=== PATIENT | male | born 1970 | race Caucasian/White ===

== ENCOUNTER → 2016-12-01 | Outpatient (CLI) | payer SELFPAY ==
[2016-12-01 09:00] LABS: Basophils % (A) 0 %; CH 30.5; CHCM 32.3; Eosinophils # (A) 0.1 k/uL (0-0.7); Eosinophils % (A) 1 %; HCT 55.2 % (39.0-53.0); HDW 2.28; HGB 17.6 gm/dL (13.0-17.5); Luc # (Auto) 0.23; Luc % (Auto) 3; Lymphocytes # (A) 1.6 k/uL (1.0-4.8); Lymphocytes % (A) 22 %; MCH 30.2 pg (25.0-35.0); MCHC 31.9 g/dL (31.0-37.0); MCV 94.7 fL (80.0-100.0); Mean Platelet Volume 6.4; Monocytes # (A) 0.5 k/uL (0-1.0); Monocytes % (A) 7 %; Neutrophils # (A) 4.7 k/uL (1.3-7.7); Neutrophils % (A) 67 %; RBC 5.83 m/uL (4.30-5.90); RDW 12.6 % (11.5-15.5); WBC 7.1 k/uL (3.8-10.6); WBC (Perox) 7.04
[2016-12-01 09:23] LABS: Bilirubin, Delta 0.3 mg/dL (0.0-0.2); Total Protein 7.5 g/dL (6.3-8.2)
[2016-12-01 10:32] LABS: Hemoglobin A1C 5.2 % (4.2-6.1)
== END | disposition home or self-care (01) ==
LOC: LABWHC1 08:23
PROVIDERS: ATTEND Psychiatry & Neurology Psychiatry
DX: F31.2 Bipolar disorder, current episode manic severe with psychotic features (principal)
CPT/HCPCS: 36415; 80061; 80076; 83036; 85025

== ENCOUNTER → 2017-11-02 | Outpatient (CLI) | payer SELFPAY ==
[2017-11-02 09:22] LABS: Basophils % (A) 1 %; Eosinophils # (A) 0.1 k/uL (0-0.7); Eosinophils % (A) 1 %; HCT 54.9 % (39.0-53.0); Lymphocytes # (A) 2.2 k/uL (1.0-4.8); Lymphocytes % (A) 28 %; MCH 29.2 pg (25.0-35.0); MCHC 32.8 g/dL (31.0-37.0); Mean Platelet Volume 6.5; Monocytes # (A) 0.5 k/uL (0-1.0); Monocytes % (A) 7 %; Neutrophils # (A) 4.6 k/uL (1.3-7.7); Neutrophils % (A) 60 %; Platelet Count 258 k/uL (150-450); RBC 6.17 m/uL (4.30-5.90); RDW 12.9 % (11.5-15.5); WBC 7.6 k/uL (3.8-10.6)
[2017-11-02 09:47] LABS: ALT 19 U/L (21-72); AST 13 U/L (17-59); Albumin 4.3 g/dL (3.5-5.0); Alkaline Phosphatase 61 U/L (38-126); Anion Gap 14 mmol/L; Blood Urea Nitrogen 23 mg/dL (9-20); Calcium 9.6 mg/dL (8.4-10.2); Carbon Dioxide 28 mmol/L (22-30); Chloride 102 mmol/L (98-107); Cholesterol 225 mg/dL (<200); Glucose 87 mg/dL (74-99); HDL Cholesterol 41 mg/dL (40-60); LDL Cholesterol,Calculated 156 mg/dL (0-99); Potassium 4.7 mmol/L (3.5-5.1); Sodium 144 mmol/L (137-145); Total Protein 7.5 g/dL (6.3-8.2); Triglycerides 141 mg/dL (<150)
[2017-11-02 09:52] LABS: Valproic Acid (Depakene) 33.5 ug/mL
[2017-11-02 21:58] LABS: Hemoglobin A1C 5.5 % (4.0-6.0)
== END | disposition home or self-care (01) ==
LOC: LABWHC1 08:06
PROVIDERS: ATTEND Psychiatry & Neurology Psychiatry
DX: F31.2 Bipolar disorder, current episode manic severe with psychotic features (principal)
CPT/HCPCS: 36415; 80053; 80061; 80164; 83036; 85025

== ENCOUNTER 2018-11-16 19:11 | Inpatient (IN) | payer BC, OTHER ==
--- NOTE | 2018-11-16 19:46 | ED ---
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 Patient states he missed his Abilify shot 2 weeks ago. Patient states he believes he has missed 3 total in the past 2 years. However states that he had a pickup order because he missed 5 in a row. Patient states he is taking his Depakote orally as directed. Patient denies any suicidal thoughts or worsening depression. Denies any thoughts of harming himself or anyone else. Patient denying any complaints at this time.Patient has no other complaints at this time including shortness of breath, chest pain, abdominal pain, nausea or vomiting, headache, or visual changes. - Related Data Home Medications Medication Instructions Recorded Confirmed ARIPiprazole IM SYRINGE [Abilify 400 mg IM Q28D 11/16/18 11/16/18 Maintena Syringe] Divalproex ER [Depakote ER] 1,500 mg PO HS 11/16/18 11/16/18 Allergies Allergy/AdvReac Type Severity Reaction Status Date / Time No Known Allergies Allergy Verified 11/16/18 19:36 Review of Systems ROS Statement: Those systems with pertinent positive or pertinent negative responses have been documented in the HPI. ROS Other: All systems not noted in ROS Statement are negative. Past Medical History Additional Past Medical History / Comment(s): Hernia History of Any Multi-Drug Resistant Organisms: None Reported Past Surgical History: Hernia Repair Past Anesthesia/Blood Transfusion Reactions: No Reported Reaction Past Psychological History: Bipolar Smoking Status: Never smoker Past Alcohol Use History: None Reported Past Drug Use History: None Reported - Past Family History Father Additional Family Medical History / Comment(s): Father is 80 years old with no major medical problems. Mother Additional Family Medical History / Comment(s): Mother is 81 years old with no major medical problems. Brother(s) Additional Family Medical History / Comment(s): He has 4 brothers and 2 sisters with no medical problems. Patient has 3 daughters and 1 son that are healthy. General Exam General appearance: alert, in no apparent distress Head exam: Present: atraumatic, normocephalic, normal inspection Eye exam: Present: normal appearance, PERRL, EOMI. Absent: scleral icterus, conjunctival injection, periorbital swelling ENT exam: Present: normal exam, mucous membranes moist Neck exam: Present: normal inspection, full ROM. Absent: tenderness, meningismus, lymphadenopathy Respiratory exam: Present: normal lung sounds bilaterally. Absent: respiratory distress, wheezes, rales, rhonchi, stridor Cardiovascular Exam: Present: regular rate, normal rhythm, normal heart sounds. Absent: systolic murmur, diastolic murmur, rubs, gallop, clicks Neurological exam: Present: alert, oriented X3, CN II-XII intact Psychiatric exam: Present: normal affect (pleasant cooperative), normal mood Course Vital Signs 11/16/18 19:14 Temperature 98.4 F Pulse Rate 91 Respiratory 18 Rate Blood Pressure 147/94 O2 Sat by Pulse 98 Oximetry Medical Decision Making - Medical Decision Making 48-year-old male presents by pickup order due to not having his Abilify injection. Patient was evaluated by EPS, will be admitted as he has not been following outpatient protocol. Disposition Clinical Impression: Bipolar disorder Disposition: ADMITTED IP TO THIS HOSP Condition: Fair Is patient prescribed a controlled substance at d/c from ED?: No Time of Disposition: 21:04
[2018-11-16] MEDS ORDERED: MAG HYDROX/AL HYDROX/SIMETH 30 ML CUP PO PRN (21:46)
[2018-11-16] MEDS ORDERED: LORazepam 1 MG TAB PO PRN (21:46)
[2018-11-16] MEDS ORDERED: ACETAMINOPHEN TAB 325 MG TAB PO PRN (21:46)
[2018-11-16] MEDS ORDERED: MAGNESIUM HYDROXIDE 2,400 MG/10 ML CUP PO PRN (21:46)
[2018-11-16] MEDS ORDERED: ZIPRASIDONE 20 MG VIAL IM PRN (21:46)
[2018-11-16] MEDS ORDERED: LORazepam 2 MG/ML INJ IM PRN (21:48)
[2018-11-16 22:36] VITALS: BMI 30.4
--- NOTE | 2018-11-17 07:19 | P.MDCNMH ---
History of Present Illness H&P Date: 11/17/18 Chief Complaint: noncompliance with medications 48-year-old male with no significant past medical history. Patient reports history of bipolar disorder patient was brought into the hospital upon court orderdue to missing his Abilify shots and follow-up appointments. Patient reports that he didn't have a rideto go to the appointments. He denies any suicidal ideation or homicidal ideation he denies any hallucinations. He denies any medical concerns at this point momo es any chest pain trouble breathing fevers chills coughing nausea vomiting abdominal pain or GI bleeding.patient denies any alcohol intake smoking or drug of abuse Review of Systems Pertinent positives as noted in HPI. All other systems were reviewed and are negative Past Medical History Additional Past Medical History / Comment(s): Hernia History of Any Multi-Drug Resistant Organisms: None Reported Past Surgical History: Hernia Repair Past Anesthesia/Blood Transfusion Reactions: No Reported Reaction Past Psychological History: Bipolar Smoking Status: Never smoker Past Alcohol Use History: None Reported Additional Past Alcohol Use History / Comment(s): Patient states he is a lifelong nonsmoker. He denies any medical marijuana, marijuana, street drug use or alcohol use. Past Drug Use History: None Reported - Past Family History Father Additional Family Medical History / Comment(s): Father is 80 years old with no major medical problems. Mother Additional Family Medical History / Comment(s): Mother is 81 years old with no major medical problems. Brother(s) Additional Family Medical History / Comment(s): He has 4 brothers and 2 sisters with no medical problems. Patient has 3 daughters and 1 son that are healthy. Medications and Allergies Home Medications Medication Instructions Recorded Confirmed Type ARIPiprazole IM SYRINGE [Abilify 400 mg IM Q28D 11/16/18 11/17/18 History Maintena Syringe] Divalproex ER [Depakote ER] 1,500 mg PO HS 11/16/18 11/17/18 History Allergies Allergy/AdvReac Type Severity Reaction Status Date / Time No Known Allergies Allergy Verified 11/17/18 00:31 Physical Exam Vitals: Vital Signs Temp Pulse Pulse Resp BP BP Pulse Ox 11/17/18 06:22 97.4 F L 77 18 119/81 11/16/18 22:26 98.6 F 86 18 143/89 11/16/18 21:32 98.5 F 82 18 104/86 95 11/16/18 19:14 98.4 F 91 18 147/94 98 Intake and Output 11/16/18 11/17/18 11/17/18 22:59 06:59 14:59 Other: Weight 90.718 kg Constitutional: No acute distress, conversant, pleasant Eyes: Anicteric sclerae, moist conjunctiva, no lid-lag Pupils equal round reactive to light ENMT: NC/AT Oropharynx clear, no erythema, exudates Neck: Supple, FROM, no masses, or JVD No carotid bruits No thyromegaly Lungs: Clear to auscultation Clear to percussion Normal respiratory effort, no accessory muscle use Cardiovascular: Heart regular in rate and rhythm, No murmurs, gallops, or rubs No peripheral edema Abdominal: Soft Nontender, no guarding, rebound or rigidity Abdomen moving with respiration Normoactive bowel sounds No hepatomegaly, No splenomegaly No palpable mass No abdominal wall hernia noted Skin: Normal temperature, tone, texture, turgor No induration No subcutaneous nodules No rash, lesions No ulcers Extremities: No digital cyanosis No clubbing Pedal pulses intact and symmetrical Radial pulses intact and symmetrical No calf tenderness Psychiatric: Alert and oriented to person, place and time Appropriate affect fair judgement Neuro Muscles Strength 5/5 in all 4 extremities Sensation to light touch grossly present throughout Cranial nerves II-XII grossly intact No focal sensory deficits Lymphatics: no palpable cervical or supraclavicular , or inguinal lymph nodes Cranial Nerve Examination - Cranial Nerves Cranial Nerve II- Optic: Intact Cranial Nerve III- Oculomotor: Intact Cranial Nerve IV- Trochlear: Intact Cranial Nerve V- Trigeminal: Intact Cranial Nerve - Abducens: Intact Cranial Nerve VII- Facial: Intact Cranial Nerve VIII- Auditory: Intact Cranial Nerve IX- Glossopharyngeal: Intact Cranial Nerve X- Vagus: Intact Cranial Nerve XI- Accessory: Intact Cranial Nerve XII- Hypoglossal: Intact Assessment and Plan Assessment: 48-year-old male with no significant past medical history. He reports history of bipolar disorder compliant with his medications. He was brought into the hospital due to missing Abilify shots and was brought in by court order for compliance. Patient denies any medical complaints or concerns at this point Plan: bipolar disorder Noncompliance with medications Management per psych Patient is ambulatory low risk for DVT Thank you for allowing us to participate in the care of this patient. We will follow peripherally. Do not hesitate to contact us with questions. Someone can be reached from the [facility] hospitalist group at all hours of the day at [phone].
[2018-11-17] MEDS ORDERED: ARIPiprazole IM SYRINGE 400 MG (NO CHARGE) IM ONE (09:09)
[2018-11-17] MEDS: DIVALPROEX ER 500 MG TAB.ER.24H PO SCH ×3 (10:30→21:18)
--- NOTE | 2018-11-17 10:57 | P.HP ---
Psychiatric H&P - . History & Physical: Allergies Allergy/AdvReac Type Severity Reaction Status Date / Time No Known Allergies Allergy Verified 11/17/18 00:31 Vital Signs Temp 97.4 F L 11/17/18 06:22 Pulse 77 11/17/18 06:22 Resp 18 11/17/18 06:22 BP 119/81 11/17/18 06:22 Pulse Ox 95 11/16/18 21:32 Intake & Output 11/16/18 11/17/18 11/17/18 18:59 06:59 18:59 Weight 90.718 kg 11/17/18 10:48 IDENTIFYING DATA: This patient is a 48-year-old male who was admitted to the mental health unit on a pickup order due to his noncompliance with outpatient follow-up and medication. HPI: The patient is known to this mental health services. He carries a diagn osis of bipolar 1 disorder. He has been established with [facility] however he has missed several outpatient appointments and missed his last injection of Abilify maintena. This violates his ongoing court order and he was brought in subsequently. The patient states that he has been doing quite well his mood is stable. He endorses no feelings of depression or anxiety. Sleep appetite and energy all reported to be normal. He indicates he sleeping 6-8 hours a night. He reports energy level is normal and does not feel excessive. He endorses no racing thoughts. He feels his thoughts are organized. He reports no hopelessness thinking no suicidal ideation intent or plan. He reports no homicidal ideation intent or plan. He endorses no auditory or visual hallucinations or any specific delusions. He reports no ownership of firearms. He states he is aware that he has violated the court order. 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 PAST PSYCHIATRIC HISTORY: The patient has had at least 4 inpatient psychiatric admissions this would be his third since 2013. He carries a diagnosis of bipolar 1 disorder and was previously hospitalized for being manic with psychosis. He is described Depakote ER 500 mg 3 times daily Abilify maintena 400 mg monthly. He states he's been on no other psychotropic medications in the past. He worked with Dr. Stroker and a therapist with [facility]. No reported history of suicide attempts. PMH: None reported other than suspected hyperlipidemia ALLERGIES: NO KNOWN DRUG ALLERGIES MEDICATIONS: Depakote ER and Abilify maintena CHEMICAL DEPENDENCY HISTORY: He reports no use of alcohol marijuana or illicit drugs. He's never been placed in residential treatment for chemical dependency reasons. FAMILY PSYCHIATRIC HISTORY: He reports that his brother was treated with lithium diagnosis unknown, no report of suicides in the family FAMILY CHEMICAL DEPENDENCY HISTORY: None reported SOCIAL HISTORY: The patient's is for the last 23 years him and his are currently he is residing with his parents. He has 4 children ages 14 and 17 19 and 21. They are all girls except for his youngest. 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 He has no driver trainer's license but gets rides to work from his brother. He graduated high school no history of service. Legal history he states he lost his license due to numerous traffic violations and reckless driving. Abuse history none reported. MENTAL STATUS EXAM: The patient is alert he is dressed in his own clothing eye contact is appropriate he's pleasant and cooperative. He is easily directed during the session. He indicates his mood is good he denies having any hopelessness thinking or suicidal ideation intent or plan. He reports no homicidal ideation intent or plan. Speech is fluent spontaneous nonpressured he demonstrates no tangential thinking loose associations or flight of ideas. He does not appear hypomanic or manic. He reports no auditory or visual hallucinations or any specific delusions and there is no observed evidence of psychosis. He demonstrated no verbal or physical aggressiveness. He demonstrates no involuntary repetitive movements. He is oriented to person place and date. He is able to name the days of the week backwards. Insight and judgment appear to be grossly intact and he spontaneously describes future oriented thinking. STRENGTHS/WEAKNESSES: Strengths: Housing and employment weaknesses: Nonadherence to court ordered treatment INTELLECTUAL FUNCTIONING: Average IMPRESSIONS: [] 1. Bipolar 1 disorder most recent manic with psychosis PLAN: The patient has been admitted to the mental health unit on an existing treatment order. We discussed the importance of him adhering to outpatient appointments and compliant with his medication. Clinically he is stable and there is no evidence of psychosis or ayo. He is able to attend to his activities of daily living. We will administer Abilify maintena 400 mg IM today. He will continue Depakote ER 500 mg 3 times daily. Depakote level pending. He will be expected to participate in groups. We will monitor him for safety. We will evaluate him during the course of today and tonight and I expect we will be able to discharge him tomorrow if he continues to appear clinically stable.
[2018-11-17 11:24] LABS: Basophils % (A) 1 %; Eosinophils % (A) 1 %; HCT 52.6 % (39.0-53.0); HGB 16.8 gm/dL (13.0-17.5); Lymphocytes # (A) 1.3 k/uL (1.0-4.8); Lymphocytes % (A) 23 %; MCH 29.4 pg (25.0-35.0); MCV 91.9 fL (80.0-100.0); Mean Platelet Volume 6.3; Monocytes # (A) 0.5 k/uL (0-1.0); Monocytes % (A) 8 %; Neutrophils # (A) 3.8 k/uL (1.3-7.7); Neutrophils % (A) 64 %; Platelet Count 227 k/uL (150-450); RBC 5.72 m/uL (4.30-5.90); RDW 13.6 % (11.5-15.5); WBC 5.9 k/uL (3.8-10.6)
[2018-11-17 11:47] LABS: ALT 82 U/L (21-72); AST 44 U/L (17-59); Albumin 4.3 g/dL (3.5-5.0); Alkaline Phosphatase 59 U/L (38-126); Anion Gap 8 mmol/L; Blood Urea Nitrogen 15 mg/dL (9-20); Calcium 9.8 mg/dL (8.4-10.2); Carbon Dioxide 28 mmol/L (22-30); Chloride 103 mmol/L (98-107); Cholesterol 206 mg/dL (<200); Glucose 71 mg/dL (74-99); HDL Cholesterol 44 mg/dL (40-60); LDL Cholesterol,Calculated 139 mg/dL (0-99); Potassium 4.7 mmol/L (3.5-5.1); Sodium 139 mmol/L (137-145); Total Protein 7.4 g/dL (6.3-8.2); Triglycerides 116 mg/dL (<150)
[2018-11-17 18:02] LABS: Hemoglobin A1C 5.6 % (4.0-6.0)
[2018-11-17] MEDS ORDERED: DIVALPROEX ER 500 MG TAB.ER.24H PO SCH (21:00)
[2018-11-18 06:57] VITALS: BP 113/61; PULSE 69; RESP 15; TEMP 97.6
[2018-11-18] MEDS: DIVALPROEX ER 500 MG TAB.ER.24H PO SCH (09:02)
--- NOTE | 2018-11-18 09:05 | P.DS ---
Providers Date of admission: 11/16/18 20:43 Expected date of discharge: 11/18/18 Attending physician: Vamsi Cortes Consults: 11/16/18 21:46 Consult Physician Routine Consulting Provider: Xuan Cordoba Consult Reason/Comments: H&P and medical Do you want consulting provider notified?: Yes Primary care physician: Stated None - Discharge Diagnosis(es) (1) Bipolar 1 disorder Current Visit: Yes Status: Acute Priority: High Hospital Course: Brief summary of admission note: This patient is a 48-year-old male who was admitted to the mental health unit on a pickup order due to noncompliance with an existing court order for psychiatric treatment. Upon admission it was reported that the patient had missed outpatient psychiatric follow-up appointments at [facility]. Additionally he had not received his last ordered injection of Abilify maintena that was due over 2 weeks ago. Subsequently a pickup order was issued and he was brought to the hospital for admission. Despite his noncompliance the patient stated he was doing quite well states that sleep was stable he is experiencing no increase in energy no racing thoughts. 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 He endorses no hallucinations or specific delusions. He states that he is aware that he missed the appointments and took responsibility for that. 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 For full details please refer to my psychiatric evaluation dated 11/17/2018. Summary of hospital course: The patient was admitted to the mental health unit on an existing court order. We resumed his Depakote ER and he prefers to take it as 500 mg 3 times daily. He was given the injection of Abilify maintena 400 mg yesterday. The patient has been attending all groups. He has been pleasant and cooperative. The last 2 nights he has slept throughout the night without difficulty. There have been no behavioral issues. Staff report that the patient has been appropriately contributing to groups and easily directable. He is demonstrated no evidence of acute psychosis or ayo. He has given us permission to speak with his parents and brother. We will obtain collateral information from them. His brother will likely participate in a support meeting today. We discussed the importance of maintaining compliance with his outpatient mental health care. He was seen by internal medicine for routine history and physical exam. Social work has met with him to complete a psychosocial assessment and for discharge planning purposes. Mental status exam: The patient is alert he is dressed in his own clothing hygiene grooming adequate. Speech is fluent spontaneous nonpressured. He demonstrates no circumstantial thinking tangential thinking loose associations or flight of ideas. He does not appear hypomanic or manic. He is endorsing no auditory or visual hallucinations or any specific delusions. He demonstrates no observed evidence of psychosis. He reports no depressed mood he endorses no significant anxiety or irritability. Affect is euthymic and congruent to reported mood. He does not appear irritable or euphoric. He demonstrates no verbal or physical aggressiveness he demonstrates no involuntary repetitive movements. Insight and judgment appear to be grossly intact. He spontaneously describes appropriate future oriented thinking. He remains oriented to person place and date. Impressions 1. Bipolar 1 disorder most recent manic with psychosis Plan: The patient will be discharged mental health unit he will return residing with his parents. There is no imminent safety risk and he does not appear to require continued involuntary psychiatric hospitalization. He is appropriate for transition back to outpatient care. Again we discussed the importance of maintaining compliance with appointments and medication. He will continue on Depakote ER 500 mg 3 times a day, Abilify maintena 400 mg every 28 days next dose is due 12/15/2018. He reports no use of alcohol or illicit drugs and knees instructed to continue abstaining from substances. He is instructed to return to the hospital with any acute safety concerns. Patient Condition at Discharge: Stable Plan - Discharge Summary Discharge Rx Participant: No New Discharge Prescriptions: New Divalproex ER [Depakote ER] 500 mg PO TID #45 tab.er.24h Continue ARIPiprazole IM SYRINGE [Abilify Maintena Syringe] 400 mg IM Q28D #1 syringe Discontinued Divalproex ER [Depakote ER] 1,500 mg PO HS Discharge Medication List ARIPiprazole IM SYRINGE [Abilify Maintena Syringe] 400 mg IM Q28D #1 syringe 11/18/18 [Rx] Divalproex ER [Depakote ER] 500 mg PO TID #45 tab.er.24h 11/18/18 [Rx] Follow up Appointment(s)/Referral(s): None,Stated [Primary Care Provider] - 1-2 days
== END 2018-11-18 13:34 | disposition home or self-care (01) | DRG 885 ==
LOC: EC 19:11 → 3MHU 20:43
PROVIDERS: ADMIT Psychiatry & Neurology Psychiatry; ATTEND Psychiatry & Neurology Psychiatry
DX: F31.2 Bipolar disorder, current episode manic severe with psychotic features (principal); Z79.899 Other long term (current) drug therapy; Z91.19 Patient's noncompliance with other medical treatment and regimen; Z91.14 Patient's other noncompliance with medication regimen
CPT/HCPCS: 80053; 80061; 80164; 83036; 84443; 85025; 99285

== ENCOUNTER 2020-11-20 16:46 | Emergency (ER) | payer OTHER ==
[2020-11-20] MEDS ORDERED: IBUPROFEN 800 MG TAB PO STA (17:25)
[2020-11-20 17:39] LABS: Basophils % (A) 0 %; Eosinophils # (A) 0.1 k/uL (0-0.7); Eosinophils % (A) 1 %; HCT 45.4 % (39.0-53.0); HGB 15.7 gm/dL (13.0-17.5); Lymphocytes # (A) 1.5 k/uL (1.0-4.8); Lymphocytes % (A) 12 %; MCH 30.1 pg (25.0-35.0); MCHC 34.5 g/dL (31.0-37.0); MCV 87.2 fL (80.0-100.0); Mean Platelet Volume 6.7; Monocytes # (A) 0.9 k/uL (0-1.0); Monocytes % (A) 7 %; Neutrophils # (A) 10.1 k/uL (1.3-7.7); Neutrophils % (A) 79 %; Platelet Count 299 k/uL (150-450); RBC 5.21 m/uL (4.30-5.90); RDW 12.3 % (11.5-15.5); WBC 12.8 k/uL (3.8-10.6)
[2020-11-20 17:53] LABS: Acetaminophen <10.0 ug/mL; African American GFR (CKD) >90 (>60 ml/min/1.73 sqM); Alcohol <10 mg/dL; Anion Gap 8 mmol/L; Blood Urea Nitrogen 9 mg/dL (9-20); Calcium 9.3 mg/dL (8.4-10.2); Carbon Dioxide 25 mmol/L (22-30); Chloride 97 mmol/L (98-107); Glucose 122 mg/dL (74-99); Non-African American GFR(CKD) >90 (>60 ml/min/1.73 sqM); Potassium 4.2 mmol/L (3.5-5.1); Salicylate <1.0 mg/dL; Sodium 130 mmol/L (137-145)
[2020-11-20] MEDS ORDERED: diphenhydrAMINE 50 MG/ML 1 ML VIAL IVP STA (17:56)
[2020-11-20] MEDS ORDERED: LORazepam 2 MG/ML INJ IV STA (17:56)
--- NOTE | 2020-11-20 18:37 | XR ---
EXAMINATION TYPE: XR chest 1V portable DATE OF EXAM: 11/20/2020 COMPARISON: NONE HISTORY: Cough TECHNIQUE: Single view FINDINGS: Heart and mediastinum are normal. Lungs are clear. Diaphragm is normal. Bony thorax appears normal. Pulmonary vascularity is normal. IMPRESSION: Normal chest. Normal heart.
--- NOTE | 2020-11-20 19:38 | ED ---
Psych HPI - General Chief Complaint: Psychiatric Symptoms Stated Complaint: Mental health Time Seen by Provider: 11/20/20 16:52 Source: patient Mode of arrival: ambulatory - Related Data Home Medications Medication Instructions Recorded Confirmed No Known Home Medications 11/20/20 11/20/20 Allergies Allergy/AdvReac Type Severity Reaction Status Date / Time No Known Allergies Allergy Verified 11/20/20 20:08 Review of Systems ROS Statement: Those systems with pertinent positive or pertinent negative responses have been documented in the HPI. ROS Other: All systems not noted in ROS Statement are negative. Past Medical History Additional Past Medical History / Comment(s): Hernia History of Any Multi-Drug Resistant Organisms: None Reported Past Surgical History: Hernia Repair Past Anesthesia/Blood Transfusion Reactions: No Reported Reaction Past Psychological History: Bipolar Smoking Status: Never smoker Past Alcohol Use History: None Reported Past Drug Use History: None Reported - Past Family History Father Additional Family Medical History / Comment(s): Father is 80 years old with no major medical problems. Mother Additional Family Medical History / Comment(s): Mother is 81 years old with no major medical problems. Brother(s) Additional Family Medical History / Comment(s): He has 4 brothers and 2 sisters with no medical problems. Patient has 3 daughters and 1 son that are healthy. General Exam Limitations: no limitations Course Vital Signs 11/20/20 11/20/20 11/20/20 17:03 20:02 20:12 Temperature 100.3 F H 98 F Pulse Rate 112 H 102 H Respiratory 18 20 Rate Blood Pressure 141/83 O2 Sat by Pulse 97 95 Oximetry Procedures - Restraint - Face to Face Restraint Occurrence 1 Patient's Immediate Situation: Endangers self safety, Endangers others' safety Patient's Immediate Situation - Comment: Face to face eval at 1715 Patient's Reaction to the Intervention: Calm, Cooperative Need to Continue or Terminate Restraint or Seclusion: Continue Medical Decision Making - Medical Decision Making Patient is medically clear for psychiatry. - Lab Data Result diagrams: 11/20/20 17:17 11/20/20 17:17 Lab Results 11/20/20 11/20/20 11/20/20 Range/Units 17:17 17:17 17:57 WBC 12.8 H (3.8-10.6) k/uL RBC 5.21 (4.30-5.90) m/uL Hgb 15.7 (13.0-17.5) gm/dL Hct 45.4 (39.0-53.0) % MCV 87.2 (80.0-100.0) fL MCH 30.1 (25.0-35.0) pg MCHC 34.5 (31.0-37.0) g/dL RDW 12.3 (11.5-15.5) % Plt Count 299 (150-450) k/uL MPV 6.7 Neutrophils % 79 % Lymphocytes % 12 % Monocytes % 7 % Eosinophils % 1 % Basophils % 0 % Neutrophils # 10.1 H (1.3-7.7) k/uL Lymphocytes # 1.5 (1.0-4.8) k/uL Monocytes # 0.9 (0-1.0) k/uL Eosinophils # 0.1 (0-0.7) k/uL Basophils # 0.0 (0-0.2) k/uL Sodium 130 L (137-145) mmol/L Potassium 4.2 (3.5-5.1) mmol/L Chloride 97 L (98-107) mmol/L Carbon Dioxide 25 (22-30) mmol/L Anion Gap 8 mmol/L BUN 9 (9-20) mg/dL Creatinine 0.93 (0.66-1.25) mg/dL Est GFR (CKD-EPI)AfAm >90 (>60 ml/min/1.73 sqM) Est GFR (CKD-EPI)NonAf >90 (>60 ml/min/1.73 sqM) Glucose 122 H (74-99) mg/dL Calcium 9.3 (8.4-10.2) mg/dL Salicylates <1.0 mg/dL Acetaminophen <10.0 ug/mL Serum Alcohol <10 mg/dL Coronavirus (PCR) Not Detected (Not Detectd) Disposition Clinical Impression: Depression Disposition: TRANSFER TO PSYCH HOSP/UNIT Is patient prescribed a controlled substance at d/c from ED?: No Referrals: None,Stated [Primary Care Provider] - 1-2 days
[2020-11-21 01:32] LABS: Appearance,Urine Clear (Clear); Bilirubin,Urine Negative (Negative); Blood,Urine Negative (Negative); Color,Urine Yellow; Glucose,Urine (UA) Negative (Negative); Ketones,Urine Negative (Negative); Leukocyte Esterase,Urine Negative (Negative); Nitrite,Urine Negative (Negative); Protein,Urine Trace (Negative); Specific Gravity,Urine 1.017 (1.001-1.035)
[2020-11-21] MEDS ORDERED: LORazepam 2 MG/ML INJ IV STA (01:43)
[2020-11-21 01:48] LABS: Amphetamine Screen,Urine Not Detected (NotDetected); Barbiturate Screen,Urine Not Detected (NotDetected); Benzodiazepines Screen,Urine Detected (NotDetected); Cocaine Screen,Urine Not Detected (NotDetected); Methadone Screen, Urine Not Detected (NotDetected); Opiate Screen,Urine Not Detected (NotDetected); Oxycodone Screen, Urine Not Detected (NotDetected); Phencyclidine Screen,Urine Not Detected (NotDetected); Tricyclic Antidepressant,Urine Not Detected (NotDetected); Urn Cannabinoid Scrn Not Detected (NotDetected)
[2020-11-21 02:14] VITALS: PULSE 117
[2020-11-21] MEDS: LORazepam 2 MG/ML INJ IV PRN ×2 (02:53→09:35)
--- NOTE | 2020-11-21 04:47 | ED ---
Medical Decision Making - Medical Decision Making 50 male DF for evaluation patient seen and evaluated here in the ER by myself myself needs restraints and continued restraints, patient will be transferred for inpatient psychiatric evaluation and treatment - Lab Data Result diagrams: 11/20/20 17:17 11/20/20 17:17 Lab Results 11/20/20 11/20/20 11/20/20 Range/Units 17:17 17:17 17:57 WBC 12.8 H (3.8-10.6) k/uL RBC 5.21 (4.30-5.90) m/uL Hgb 15.7 (13.0-17.5) gm/dL Hct 45.4 (39.0-53.0) % MCV 87.2 (80.0-100.0) fL MCH 30.1 (25.0-35.0) pg MCHC 34.5 (31.0-37.0) g/dL RDW 12.3 (11.5-15.5) % Plt Count 299 (150-450) k/uL MPV 6.7 Neutrophils % 79 % Lymphocytes % 12 % Monocytes % 7 % Eosinophils % 1 % Basophils % 0 % Neutrophils # 10.1 H (1.3-7.7) k/uL Lymphocytes # 1.5 (1.0-4.8) k/uL Monocytes # 0.9 (0-1.0) k/uL Eosinophils # 0.1 (0-0.7) k/uL Basophils # 0.0 (0-0.2) k/uL Sodium 130 L (137-145) mmol/L Potassium 4.2 (3.5-5.1) mmol/L Chloride 97 L (98-107) mmol/L Carbon Dioxide 25 (22-30) mmol/L Anion Gap 8 mmol/L BUN 9 (9-20) mg/dL Creatinine 0.93 (0.66-1.25) mg/dL Est GFR (CKD-EPI)AfAm >90 (>60 ml/min/1.73 sqM) Est GFR (CKD-EPI)NonAf >90 (>60 ml/min/1.73 sqM) Glucose 122 H (74-99) mg/dL Calcium 9.3 (8.4-10.2) mg/dL Urine Color Urine Appearance (Clear) Urine pH (5.0-8.0) Ur Specific [place] (1.001-1.035) Urine Protein (Negative) Urine Glucose (UA) (Negative) Urine Ketones (Negative) Urine Blood (Negative) Urine Nitrite (Negative) Urine Bilirubin (Negative) Urine Urobilinogen (<2.0) mg/dL Ur Leukocyte Esterase (Negative) Salicylates <1.0 mg/dL Urine Opiates Screen (NotDetected) Ur Oxycodone Screen (NotDetected) Urine Methadone Screen (NotDetected) Ur Propoxyphene Screen (NotDetected) Acetaminophen <10.0 ug/mL Ur Barbiturates Screen (NotDetected) U Tricyclic Antidepress (NotDetected) Ur Phencyclidine Scrn (NotDetected) Ur Amphetamines Screen (NotDetected) U Methamphetamines Scrn (NotDetected) U Benzodiazepines Scrn (NotDetected) Urine Cocaine Screen (NotDetected) U Marijuana (THC) Screen (NotDetected) Serum Alcohol <10 mg/dL Coronavirus (PCR) Not Detected (Not Detectd) 11/21/20 11/21/20 Range/Units 01:20 01:20 WBC (3.8-10.6) k/uL RBC (4.30-5.90) m/uL Hgb (13.0-17.5) gm/dL Hct (39.0-53.0) % MCV (80.0-100.0) fL MCH (25.0-35.0) pg MCHC (31.0-37.0) g/dL RDW (11.5-15.5) % Plt Count (150-450) k/uL MPV Neutrophils % % Lymphocytes % % Monocytes % % Eosinophils % % Basophils % % Neutrophils # (1.3-7.7) k/uL Lymphocytes # (1.0-4.8) k/uL Monocytes # (0-1.0) k/uL Eosinophils # (0-0.7) k/uL Basophils # (0-0.2) k/uL Sodium (137-145) mmol/L Potassium (3.5-5.1) mmol/L Chloride (98-107) mmol/L Carbon Dioxide (22-30) mmol/L Anion Gap mmol/L BUN (9-20) mg/dL Creatinine (0.66-1.25) mg/dL Est GFR (CKD-EPI)AfAm (>60 ml/min/1.73 sqM) Est GFR (CKD-EPI)NonAf (>60 ml/min/1.73 sqM) Glucose (74-99) mg/dL Calcium (8.4-10.2) mg/dL Urine Color Yellow Urine Appearance Clear (Clear) Urine pH 6.0 (5.0-8.0) Ur Specific [place] 1.017 (1.001-1.035) Urine Protein Trace H (Negative) Urine Glucose (UA) Negative (Negative) Urine Ketones Negative (Negative) Urine Blood Negative (Negative) Urine Nitrite Negative (Negative) Urine Bilirubin Negative (Negative) Urine Urobilinogen 4.0 (<2.0) mg/dL Ur Leukocyte Esterase Negative (Negative) Salicylates mg/dL Urine Opiates Screen Not Detected (NotDetected) Ur Oxycodone Screen Not Detected (NotDetected) Urine Methadone Screen Not Detected (NotDetected) Ur Propoxyphene Screen Not Detected (NotDetected) Acetaminophen ug/mL Ur Barbiturates Screen Not Detected (NotDetected) U Tricyclic Antidepress Not Detected (NotDetected) Ur Phencyclidine Scrn Not Detected (NotDetected) Ur Amphetamines Screen Not Detected (NotDetected) U Methamphetamines Scrn Not Detected (NotDetected) U Benzodiazepines Scrn Detected H (NotDetected) Urine Cocaine Screen Not Detected (NotDetected) U Marijuana (THC) Screen Not Detected (NotDetected) Serum Alcohol mg/dL Coronavirus (PCR) (Not Detectd) Disposition Clinical Impression: Depression, Psychosis, Acute psychosis, Personality disorder, Severe manic bipolar 1 disorder with psychotic behavior, Bipolar disorder, Bipolar 1 disorder Disposition: TRANSFER TO PSYCH HOSP/UNIT Condition: Fair Is patient prescribed a controlled substance at d/c from ED?: No Referrals: None,Stated [Primary Care Provider] - 1-2 days Procedures - Restraint - Face to Face Restraint Occurrence 1 Patient's Immediate Situation: Endangers self safety, Endangers others' safety, Endangers staff safety Patient's Reaction to the Intervention: Uncooperative, Angry, Hostile, Belligerent Patient's Medical & Behavioral Condition: Agitated Need to Continue or Terminate Restraint or Seclusion: Continue Face to Face Eval of Restraint Date: 11/21/20 Face to Face Eval of Restraint Time: 02:45 Restraint Occurrence 2 Patient's Immediate Situation: Endangers self safety, Endangers others' safety, Endangers staff safety Patient's Reaction to the Intervention: Hostile, Belligerent, Bizarre Patient's Medical & Behavioral Condition: Agitated Need to Continue or Terminate Restraint or Seclusion: Continue Face to Face Eval of Restraint Date: 11/21/20 Face to Face Eval of Restraint Time: 04:00
[2020-11-21 07:56] VITALS: BP 152/89; RESP 18; TEMP 97.8
== END 2020-11-21 11:10 ==
LOC: EC 16:46
DX: F31.2 Bipolar disorder, current episode manic severe with psychotic features (principal); F23 Brief psychotic disorder; F60.9 Personality disorder, unspecified
CPT/HCPCS: 36415; 80048; 85025; 81003; 80306; 80143; 80320; 87635; 80179; 71045; 99285; 96374; 96376 ×2; J2060 ×2; J1200

== ENCOUNTER 2022-05-16 12:49 | Inpatient (IN) | payer OTHER ==
--- NOTE | 2022-05-16 14:46 | ED ---
General Adult HPI - General Chief complaint: Psychiatric Symptoms Stated complaint: Petition Time Seen by Provider: 05/16/22 14:23 Source: police Mode of arrival: ambulatory Limitations: no limitations - History of Present Illness Initial comments: Dictation was produced using [employer] dictation software. please excuse any grammatical, word or spelling errors. Chief Complaint: 52-year-old presents emergency department for psychiatric evaluation History of Present Illness: 52-year-old male who is brought in by police. Patient had a petition filled by police for discerning behavior. Patient allegedly has been having psychotic symptoms for the last several days. Patient is a poor historian secondary to psychosis. He does not report hallucinations. Patient is showing signs of strange behavior and according to petition patient has been doing yard work at 3 AM in the morning. Patient denies this. Patient denies any suicidal or homicidal ideation. Denies any visual or auditory hallucinations. The ROS documented in this emergency department record has been reviewed and confirmed by me. Those systems with pertinent positive or negative responses have been documented in the HPI. All other systems are other negative and/or noncontributory. PHYSICAL EXAM: General Impression: Alert and oriented x3, not in acute distress HEENT: Normocephalic atraumatic, extra-ocular movements intact, pupils equal and reactive to light bilaterally, mucous membranes moist. Cardiovascular: Heart regular rate and rhythm Chest: Able to complete full sentences, no retractions, no tachypnea Musculoskeletal: Pulses present and equal in all extremities, no peripheral edema Motor: no focal deficits noted Neurological: CN II-XII grossly intact, no focal motor or sensory deficits noted Skin: Intact with no visualized rashes Psych: Tangential speech ED course: 52-year-old male presents emergency department for psychiatric evaluation. Patient is well-appearing. Signs upon arrival shows heart rate of 125, rest of vital signs within acceptable limits. Chart review was performed. Patient has been admitted to our inpatient psych facility in the past. Patient medically cleared. Patient evaluate by EPS and we'll admit patient to mental health unit. - Related Data Home Medications Medication Instructions Recorded Confirmed No Known Home Medications 11/20/20 05/16/22 Allergies Allergy/AdvReac Type Severity Reaction Status Date / Time No Known Allergies Allergy Verified 05/16/22 15:45 Review of Systems ROS Statement: Those systems with pertinent positive or pertinent negative responses have been documented in the HPI. ROS Other: All systems not noted in ROS Statement are negative. Past Medical History Additional Past Medical History / Comment(s): Hernia History of Any Multi-Drug Resistant Organisms: None Reported Past Surgical History: Hernia Repair Past Anesthesia/Blood Transfusion Reactions: No Reported Reaction Past Psychological History: Bipolar Smoking Status: Never smoker Past Alcohol Use History: None Reported Past Drug Use History: None Reported - Past Family History Father Additional Family Medical History / Comment(s): Father is 80 years old with no major medical problems. Mother Additional Family Medical History / Comment(s): Mother is 81 years old with no major medical problems. Brother(s) Additional Family Medical History / Comment(s): He has 4 brothers and 2 sisters with no medical problems. Patient has 3 daughters and 1 son that are healthy. General Exam Limitations: no limitations Course Vital Signs 05/16/22 14:18 Temperature 97 F L Pulse Rate 125 H Respiratory 20 Rate Blood Pressure 183/110 O2 Sat by Pulse 99 Oximetry Medical Decision Making - Lab Data Lab Results 05/16/22 Range/Units 15:10 Coronavirus (PCR) Not Detected (Not Detectd) Disposition Clinical Impression: Psychosis Disposition: ADMITTED IP TO THIS HOSP Condition: Fair Referrals: None,Stated [Primary Care Provider] - 1-2 days Decision Time: 16:39
[2022-05-16] MEDS ORDERED: LORazepam 1 MG TAB PO STA (16:22)
[2022-05-16] MEDS ORDERED: HALOPERIDOL LACTATE 5 MG/ML 1 ML VIAL IM STA (16:51)
[2022-05-16] MEDS ORDERED: LORazepam 1 MG/0.5 ML VIAL IM PRN (22:17)
[2022-05-16] MEDS ORDERED: haloperidoL 5 MG TAB PO PRN (22:18)
[2022-05-17] MEDS: NICOTINE 14MG/24HR PATCH TRANSDERM SCH (09:40)
[2022-05-17 11:37] LABS: Urine Alcohol Negative (Negative)
[2022-05-17 11:38] LABS: Urine Barbiturate Negative (Negative); Urine Cocaine Negative (Negative); Urine Methadone Negative (Negative); Urine Opiates Negative (Negative); Urine Phencyclidine Negative (Negative)
--- NOTE | 2022-05-17 18:37 | P.HP ---
Psychiatric H&P - . H&P Date: 05/17/22 History & Physical: IDENTIFYING DATA: Patient is a 52 year old male with history of bipolar I disorder who presents with ayo. HPI: Per EPS assessment, "patient brought in on a petition related to doing yard work at 3-4am, also confronting people in [place] telling them "the spirit is inside of them". He is religiously preoccupied, verbally and passoinately loud. pt used to be on court order for abilify main. but has been discontinued, no longer active with [facility]. Pt is getting medications Haloperiodol Dec. 100mg IM q 4weeks, Depakote 500mg tab by mouth twice a day, Benztropine 1mg tab by mouth twice daily. He is not taking any He is no longer on a court order that required his to take Abilify Maintena. Pt does not believe that the "God the father" does not want him to take medications. He is hyperverbal and hyperactive. Pt is not physically aggressive and is cooperative but again is very loud and insist he will not take any medication." On my assessment, he is guarded and irritable, looks at this grant writer with intimidating stare. He reports he is hear because an officer petitioned him, appear to have poor insight into his current mental health issues. He is irritable and uncooperative with assessment, stands up and leaves the room after about two minutes. Per petition completed by commissioned police officer, patient was "causing issues over the past two weeks", has been "confronting people in [place]", "said the spirit is inside him and telling him what to do with it". He has also been doing "yard work at 3-4 am" and confronting his neighbors. In the ER last night, he was agitated and received Haldol 5mg IM x 1 and Ativan 2 mg po x 1 for agitation. He was uncooperative with the admission process, was trying to fight the security in the ER, telling staff in the ER he is Christoph Waller, was agitated in the wheelchair resulting in a small cut to the nurse's arm while she was bringing him to the unit. Apparently he was refusing the cooperate with hospitalization and transport to the inpatient unit unless the nurse allowed him to sign in voluntary, however he stated he would not be compliant with medications. He received another Haldol 5mg IM x 1 and Ativan 2 mg IM x 1 for agitation at around 4:15 am this morning on unit due to agitation and threatening staff. Review of patient activity logs shows patient slept 3.5-4 hours overnight. He has been irritable, intrusive and at times agitated since arriving to the unit. He is uncooperative with my assessment and most of history below is obtained from records. Patient has a history of heavy alcohol use in the past, it is not known if he is drinking alcohol again. His insight and judgment are poor. Suicidal ideation, homicidal ideation, auditory or visual hallucinations cannot be fully evaluated at this time due to his lack of cooperation with assessment. He has not been compliant with medications or treatment. He was previously on court ordered treatment and on Abilify Maintena long-acting injectable in the past. Patient was seen by the medical doctor and a first certification was completed by him stating patient is "delusional", he thinks he's Christoph Sridhar" and patient lacks insight about his mental health condition. I attempted to re-evaluate patient for a second time today, since he walked out of the interview room after 2 minutes on my first attempt, however he continues to be noncompliant and aborted attempts to assess him after one minute, refuses to engage in assessment and states "no, we're done". He continues to be irritable with mood lability and psychomotor hyperactivity. PAST PSYCHIATRIC HISTORY: Past diagnosis: Bipolar I disorder Past psychiatric medications: Depakote, Abilify Maintena, Cogentin, Thorazine, Prolixin. History of court ordered treatment. Prrevious psychiatric hospitalizations: Multiple, three times prior at [facility] [place], [place] and [place]. Psychiatric outpatient follow-up: None History of suicide attempts in the past: Not known at this time due to lack of cooperation PMH: Additional Past Medical History / Comment(s): Hernia History of Any Multi-Drug Resistant Organisms: None Reported Past Surgical History: Hernia Repair Past Anesthesia/Blood Transfusion Reactions: No Reported Reaction Past Psychological History: Bipolar Smoking Status: Never smoker Past Alcohol Use History: None Reported Past Drug Use History: None Reported ALLERGIES: as per EMR CHEMICAL DEPENDENCY HISTORY: as per HPI FAMILY PSYCHIATRIC/SUBSTANCE USE HISTORY: Mother- mood disorder, Brother with bipolar disorder SOCIAL HISTORY: , has 4 children, lives in [place] alone, reports he is estranged from his . MENTAL STATUS EXAM: General Appearance: Patient appears to be stated age, is dressed in black casual attire, fair hygiene. Behavior: Patient is seated with intimidating stare, is guarded and terse, ab ruptly leaves the room after two minutes. Speech: Patient's speech is fluent and non-pressured. Mood/Affect: He is irritable, affect is constricted. Suicidality/Homicidality: Not able to fully assess due to lack of cooperation. Perceptions: Not able to fully assess due to lack of cooperation. Though content/process: Brief responses, linear, terse Memory and concentration: Not able to fully assess due to lack of cooperation. Judgment and insight: Poor STRENGTHS/WEAKNESSES: Strength is that patient has can make needs known. Weakness is that patient has poor judgment and history of noncompliance with treatment INTELLECT: Average IMPRESSIONS: Bipolar I disorder, current episode mixed, severe with psychotic features Alcohol use disorder, unspecified Noncompliance with treatment PLAN: -Patient arrived to the psychiatric unit on a petition and a formal voluntary application (signed by patient only) however it has been determined he is not appropriate for voluntary admission due to his lack of cooperation with the admission process. He requires inpatient psychiatric admission in the [facility] for stabilization of psychiatric symptoms and safety. An initial certification was completed by the medical doctor and a second certification was completed by this grant writer, along with petition will be filed for court. -Medications: Will start patient on Abilify 5 mg QHS for psychosis, mood stabilization, which he will likely refuse. He will require court ordered treatment and long-acting injectable due to long history of noncompliance. -Ativan and Haldol PRN for agitation/aggression -Patient was noncompliant with attempts to discuss medications and side effects with him. -Internal Medicine consult - medical evaluation and physical. -NRT - not needed, non-smoker -SW on board for discharge planning. Encourage patient to participate in groups to work on coping skills. Will await deferral and court date. Allergies Allergy/AdvReac Type Severity Reaction Status Date / Time No Known Allergies Allergy Verified 05/16/22 15:45 Vital Signs Temp 98.7 F 05/16/22 22:34 Pulse 103 H 05/16/22 22:34 Resp 18 05/16/22 22:34 BP 131/74 05/16/22 22:34 Pulse Ox 93 L 05/16/22 22:34 FiO2 Intake & Output 05/16/22 05/17/22 05/17/22 18:59 06:59 18:59 Weight 86.183 kg 90.889 kg Laboratory Last Values Urine Opiates Screen Negative (Negative) 05/16/22 15:57 Urine Methadone Screen Negative (Negative) 05/16/22 15:57 Ur Propoxyphene Screen Negative (Negative) 05/16/22 15:57 Urine Barbiturates Negative (Negative) 05/16/22 15:57 Ur Phencyclidine Scrn Negative (Negative) 05/16/22 15:57 Ur Amphetamine Screen Negative (Negative) 05/16/22 15:57 U Benzodiazepines Scrn Negative (Negative) 05/16/22 15:57 Urine Cocaine Screen Negative (Negative) 05/16/22 15:57 U Cannabinoids Screen Negative (Negative) 05/16/22 15:57 Urine Alcohol Negative (Negative) 05/16/22 15:57 Coronavirus (PCR) Not Detected (Not Detectd) 05/16/22 15:10 05/17/22 16:13 05/17/22 18:03
[2022-05-17] MEDS ORDERED: ARIPiprazole 5 MG TAB PO SCH (21:00)
--- NOTE | 2022-05-17 23:58 | P.PN ---
Progress Note - Text Progress Note Date: 05/17/22 Attempted to see the patient at 1999 on 05/17 in the mental health unit. The patient refused to be seen or be evaluated.
[2022-05-18] MEDS: LORazepam 1 MG TAB PO PRN ×2 (01:49→22:39)
[2022-05-18] MEDS: NICOTINE 14MG/24HR PATCH TRANSDERM SCH (10:20)
[2022-05-18 18:49] LABS: Basophils # (A) 0.1 k/uL (0-0.2); Basophils % (A) 1 %; Eosinophils # (A) 0.1 k/uL (0-0.7); Eosinophils % (A) 1 %; HCT 47.4 % (39.0-53.0); HGB 15.3 gm/dL (13.0-17.5); Lymphocytes # (A) 1.8 k/uL (1.0-4.8); Lymphocytes % (A) 23 %; MCH 29.4 pg (25.0-35.0); MCHC 32.3 g/dL (31.0-37.0); MCV 90.9 fL (80.0-100.0); Monocytes # (A) 0.6 k/uL (0-1.0); Monocytes % (A) 7 %; Neutrophils # (A) 5.2 k/uL (1.3-7.7); Neutrophils % (A) 65 %; Platelet Count 288 k/uL (150-450); RBC 5.21 m/uL (4.30-5.90); RDW 12.9 % (11.5-15.5)
[2022-05-18 18:58] LABS: ALT 39 U/L (4-49); AST 37 U/L (17-59); African American GFR (CKD) >90 (>60 ml/min/1.73 sqM); Albumin 4.4 g/dL (3.5-5.0); Alkaline Phosphatase 64 U/L (38-126); Anion Gap 7 mmol/L; Blood Urea Nitrogen 20 mg/dL (9-20); Carbon Dioxide 26 mmol/L (22-30); Chloride 103 mmol/L (98-107); Glucose 88 mg/dL (74-99); Non-African American GFR(CKD) >90 (>60 ml/min/1.73 sqM); Potassium 5.2 mmol/L (3.5-5.1); Sodium 136 mmol/L (137-145); Total Protein 7.4 g/dL (6.3-8.2)
[2022-05-18] MEDS ORDERED: risperiDONE 1 MG TAB PO SCH (21:00)
--- NOTE | 2022-05-18 22:34 | P.PN ---
Progress Note - Text Progress Note Date: 05/18/22 Interval history: Patient was seen wandering the hallways and requests to be seen today, after refusing assessment on two occasions yesterday. He states he is willing to take medications today, states he is "done with the Abilify" which he refused yesterday and states he prefers Risperdal. He reports poor sleep. His mood is labile, he appears to be superficially calm and cooperative currently but has been noted to be disruptive on the unit, singing loudly in the hallways, combative, demanding, called staff "cunt" "bitch", has been making delusional comments and religiously preoccupied, shouting at staff. He agrees to take Risperdal but wants "the smallest dose" and then asks if he can be discharged tomorrow. His insight and judgment remain poor. At this time patient denies any suicidal or homicidal ideation, intent or plan. Denies any auditory or visual hallucinations, but there is concern he is attending to internal stimuli. Mental status exam: General Appearance: Patient appears to be stated age, dressed in casual attire. Behavior: He has been irritable, disruptive, singing loudly in the hallways, combative, demanding, called staff "cunt" "bitch", has been making delusional comments and religiously preoccupied, shouting at staff. Speech: Patient's speech is fluent and non-pressured. Mood/Affect: Mood is irritable, affect is labile. Suicidality/Homicidality: Patient denies having any suicidal or homicidal ideation intent or plan. Perceptions: Patient denies any auditory or visual hallucinations, but appears to be attending to internal stimuli. Though content/process: There is evidence delusional thought content and has been religiously preoccupied, and thought process is evasive. Memory and concentration: AOX3, grossly intact for the purposes of this session Judgment and insight: poor Assessment/Plan: Continue with current diagnosis. Patient continues to meet criteria for inpatient psychiatric admission for symptom stabilization and safety. Discontinue Abilify due to refusal. Start Risperdal 1 mg QHS for psychosis/mood with plan to increase as tolerated and switch to [place] due to long history of noncompliance. Monitor for medication compliance and for any psychotropic medication side effects. Will continue to monitor ongoing response to treatment. Encouraged participation in milieu.
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
[2022-05-19] MEDS: risperiDONE 1 MG TAB PO SCH ×2 (09:14→20:53)
[2022-05-19 11:18] LABS: Chol/HDL Ratio 3.66 Ratio; LDL Cholesterol,Calculated 117.8 mg/dL (0.0-131.0); VLDL Calculation 19.56 mg/dL (5.00-40.00)
[2022-05-19] MEDS: ACETAMINOPHEN TAB 325 MG TAB PO PRN (14:03)
[2022-05-19] MEDS: HALOPERIDOL LACTATE 5 MG/ML 1 ML VIAL IM PRN (23:51)
[2022-05-20] MEDS: risperiDONE 1 MG TAB PO SCH ×3 (07:49→20:54)
[2022-05-20] MEDS: ACETAMINOPHEN TAB 325 MG TAB PO PRN (07:49)
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
[2022-05-20] MEDS: MAGNESIUM HYDROXIDE 2,400 MG/10 ML CUP PO PRN (14:52)
[2022-05-21] MEDS: ACETAMINOPHEN TAB 325 MG TAB PO PRN ×2 (03:19→07:30)
[2022-05-21] MEDS: risperiDONE 1 MG TAB PO SCH ×2 (09:00→20:06)
--- NOTE | 2022-05-21 12:03 | P.PN ---
Progress Note - Text Progress Note Date: 05/21/22 S&O: Patient was seen in rounds. He continues to be more relaxed and is not agitated. He said he has been taking his risperidone 1 mg twice a day. He has a pending court hearing and is waiting to see his sales engagement manager for a deferral. He was again advised that he has to comply with outpatient treatment including taking medication and visit with his psychiatrist and therapist. He was also advised that he may be brought back to the hospital if he does not comply with treatment for 180 days. He said he will comply. He does not have any other complaints or concerns. He agreed to wait until he signs his deferral form. This is a right ambulatory male with adequate hygiene. He continues to be calm and relaxed and cooperative. He does not show any psychomotor agitation or retardation. His speech is spontaneous relevant and goal-directed. His mood is euthymic and affect is appropriate. He continues to be religiously occupied but does not dwell on it anymore. He denies suicide and homicide thoughts. His sensorium is clear. A&P: Continue risperidone, supervision and therapies.
[2022-05-21] MEDS: MAGNESIUM HYDROXIDE 2,400 MG/10 ML CUP PO PRN (20:57)
[2022-05-21] MEDS: LORazepam 1 MG TAB PO PRN (22:49)
[2022-05-21] MEDS: MAG HYDROX/AL HYDROX/SIMETH 30 ML CUP PO PRN (22:49)
--- NOTE | 2022-05-22 02:54 | P.CONS ---
History of Present Illness - Reason for Consult Consult date: 05/22/22 - History of Present Illness The patient is a 52-year-old male with no known PMH who was brought into the emergency room under police custody due to strange behavior. The patient was admitted to the mental health unit where he was seen and evaluated. The patient reports that he was diagnosed with bipolar disorder 8 years ago. He reports a small abdominal hernia denied any additional complaints. Denied experiencing abdominal pain, fever, chills, chest pain, shortness of breath, nausea, vomiting, abdominal pain, diarrhea. Review of systems: Pertinent positives and negatives as discussed in HPI, a complete review of systems was performed and all other systems are negative. Physical examination: General: non toxic, no distress, appears at stated age, normal weight Derm: no unusual rashes/lesions, no unusual ecchymoses, warm, dry Head: atraumatic, normocephalic, symmetric Eyes: EOMI, no lid lag, anicteric sclera ENT: Nose and ears atraumatic, no thrush, no pharyngeal erythema Neck: trachea midline, supple Mouth: no lip lesion, mucus membranes moist Cardiovascular: S1S2 reg, no murmur, no edema Lungs: CTA bilateral, no rhonchi, no rales , no accessory muscle use Abdominal: soft, nontender to palpation, no guarding, small umbilical hernia reducible, nontender Ext: no gross muscle atrophy, no contractures, Neuro: No gross focal neuro deficits noted Psych: Alert, oriented, appropriate affect Assessment/plan Fully reducible umbilical hernia -Patient advised that if hernia becomes nonreducible or becomes painful or tender that he should come to the emergency room or seek further care Psychosis -As per psychiatry Thank you for allowing us to participate in the care of this patient. We will follow peripherally. Do not hesitate to contact us with questions. Someone can be reached from the [facility] hospitalist group at all hours of the day at [phone]. Past Medical History Additional Past Medical History / Comment(s): Hernia History of Any Multi-Drug Resistant Organisms: None Reported Past Surgical History: Hernia Repair Past Anesthesia/Blood Transfusion Reactions: No Reported Reaction Past Psychological History: Bipolar Smoking Status: Never smoker Past Alcohol Use History: None Reported Past Drug Use History: None Reported - Past Family History Father Additional Family Medical History / Comment(s): Father is 80 years old with no major medical problems. Mother Additional Family Medical History / Comment(s): Mother is 81 years old with no m ajor medical problems. Brother(s) Additional Family Medical History / Comment(s): He has 4 brothers and 2 sisters with no medical problems. Patient has 3 daughters and 1 son that are healthy. Medications and Allergies Home Medications Medication Instructions Recorded Confirmed Type No Known Home Medications 11/20/20 05/16/22 History Allergies Allergy/AdvReac Type Severity Reaction Status Date / Time No Known Allergies Allergy Verified 05/16/22 15:45 Physical Exam Vitals: Vital Signs Temp Pulse Resp BP 05/21/22 06:32 98 F 87 14 132/83 Results CBC & Chem 7: 05/18/22 17:57 05/18/22 17:57
[2022-05-22] MEDS: ACETAMINOPHEN TAB 325 MG TAB PO PRN (04:28)
[2022-05-22] MEDS: risperiDONE 1 MG TAB PO SCH ×2 (05:59→21:14)
[2022-05-22] MEDS: LORazepam 1 MG TAB PO PRN ×2 (11:19→21:34)
--- NOTE | 2022-05-22 11:50 | P.PN ---
Progress Note - Text Progress Note Date: 05/22/22 S&O: Patient was seen in rounds. He has been taking his risperidone without any adverse effects. He was angry and screaming this morning stating that he could not see the litigation attorney associate to sign his deferral either yesterday or today. Apparently he has to wait until tomorrow for the litigation attorney associate to come here. Counseling about that was not helpful. He also wanted to send a text message to his estranged through the social media intern. He was fairly calm before he got preoccupied with his litigation attorney associate and signing the paperwork. Currently he is calm and is in his room. This is a right ambulatory male who was quite angry and agitated earlier in the morning. Currently he is calm. He continues to have some uatsdin preoccupation. His mood varies from angry to calm. Affect is somewhat increased in intensity when he gets angry. Continues to deny suicide and homicide thoughts. Sensorium is clear. A&P: Continue risperidone, therapy and supervision.
[2022-05-22] MEDS ORDERED: LORazepam 1 MG/0.5 ML VIAL IM ONE (13:10)
[2022-05-22] MEDS: HALOPERIDOL LACTATE 5 MG/ML 1 ML VIAL IM PRN (13:22)
[2022-05-23] MEDS: risperiDONE 1 MG TAB PO SCH (06:44)
[2022-05-23] MEDS: MAG HYDROX/AL HYDROX/SIMETH 30 ML CUP PO PRN ×2 (10:35→18:45)
--- NOTE | 2022-05-23 11:59 | P.PN ---
Progress Note - Text Progress Note Date: 05/23/22 S&O: Patient was seen in rounds. He is quite angry and wants to leave the hospital as soon as possible. Yesterday he got angry started to use foul language and was screaming requiring when necessary injections. Apparently he had told the nurse that he will smash my face because I had agreed with his when necessary injection. Today he continues to say that he is angry and feels like he did in my face. But he also said he will not do that because he likes me. He refuses to take higher dose of Risperdal. Counseling was ineffective. He said he will never take it even if I ordered it. His condition was discussed by the treatment team this morning and it was agreed to increase his Risperdal and wait until Thursday to consider discharging even if he signs the Deferral forrm today since he has been getting angry demanding, threatening others including me and refusing to take required medication. This is a right ambulatory male with adequate hygiene. He is angry, threatening and walked out when increasing the dose of Risperdal was discussed with him. Next A&P: Increase risperidone to 2 mg twice a day, continue supervision therapy and other complaints. Postpone discharge plans until Thursday even if he signs the deferral form.
[2022-05-23] MEDS: risperiDONE ODT 2 MG TAB PO SCH (20:05)
[2022-05-23] MEDS: LORazepam 1 MG TAB PO PRN (20:41)
[2022-05-24] MEDS: MAG HYDROX/AL HYDROX/SIMETH 30 ML CUP PO PRN ×4 (02:19→23:44)
[2022-05-24] MEDS: MAGNESIUM HYDROXIDE 2,400 MG/10 ML CUP PO PRN ×2 (03:17→20:00)
[2022-05-24] MEDS: risperiDONE ODT 2 MG TAB PO SCH (09:03)
[2022-05-24] MEDS: ACETAMINOPHEN TAB 325 MG TAB PO PRN ×2 (09:57→22:09)
--- NOTE | 2022-05-24 17:51 | P.PN ---
Progress Note - Text Progress Note Date: 05/24/22 Interval history: Patient was seen socializing in the hallways with female peers, appears to be intrusive,loud and with irritable edge. He approached this publicity writer and asked "are you coming to see me?" and when told that the nurse and I are on our way to evaluate another patient and he will be seen after, he became angry and yelled "Then don't talk to me!" and walked away. Later, on attempt to assess the patient, he continued to yell unprovoked at this publicity writer in threatening demeanor "We're not talking, get away from me NOW! Jerk! Yeah, you, keep walking!" Patient could be overheard telling other staff that this psychiatrist is a "jerk" because "she wrote lies about me!", referring to his certification that was completed last weekend. He continued to yell at me down the hallway calling me a "jerk" a couple more times. Later, he was overheard laughing and bragging to another patient he yelled at me and threatened me. He continues to be uncooperative, intrusive and labile. He is active on the unit especially with female peers. He appears under-medicated, would benefit from an increased dose of Risperdal however he threatened to harm the psychiatrist when this was discussed with him yesterday. Assessment is limited due to his lack of cooperation. Mental status exam: General Appearance: Patient appears to be stated age, dressed in casual attire. Behavior: He is threatening, demanding, appears intrusive with irritable edge, socializes with female peers, increased energy/motor activity. Speech: Patient's speech is fluent and loud. Mood/Affect: Mood is irritable, affect is labile. Suicidality/Homicidality: Unable to fully assess due to his lack of cooperation. Perceptions: Unable to fully assess due to his lack of cooperation. Though process: Unable to fully assess due to his lack of cooperation. Appears linear during my brief assessment. Thought content: Grandiose, threatening, demanding. Memory and concentration: Unable to fully assess due to his lack of cooperation, but appears alert and oriented person, place and situation. Judgment and insight: Poor Assessment/Plan: Continue with current diagnosis. Patient continues to meet criteria for inpatient psychiatric admission for symptom stabilization and safety. Increase Risperdal ODT to 3 mg BID for psychosis and mood stabilization, with plan to transition to PERKINS prior to discharge due to his long history of noncompliance. He will likely require a court hearing and court order for medication since he continues to be uncooperative, threatening and demanding with me today and the psychiatrist yesterday (see his note from yesterday) despite signing a deferral yesterday. Monitor for medication compliance and for any psychotropic medication side effects. Will continue to monitor ongoing response to treatment. Encourage participation in milieu.
[2022-05-24] MEDS: risperiDONE ODT 1 MG TAB PO SCH (20:17)
[2022-05-24] MEDS: LORazepam 1 MG TAB PO PRN (21:29)
[2022-05-25] MEDS: DOCUSATE 100 MG CAP PO SCH ×3 (00:21→20:33)
[2022-05-25] MEDS: risperiDONE ODT 1 MG TAB PO SCH ×2 (08:50→20:31)
[2022-05-25] MEDS: ACETAMINOPHEN TAB 325 MG TAB PO PRN (11:37)
[2022-05-25] MEDS: BENZTROPINE MESYLATE 0.5 MG TAB PO SCH (20:33)
[2022-05-25] MEDS: LORazepam 1 MG TAB PO PRN (21:17)
--- NOTE | 2022-05-25 23:04 | P.PN ---
Progress Note - Text Progress Note Date: 05/25/22 Interval history: Patient was seen attending group today. He initially refuses assessment but quickly changes his mind. He continues to be loud, intimidating and accusatory on assessment. His sleep is poor and staff reports he is sleeping between 2-4 hours per night. He admits "I don't sleep." His Risperdal was increased to 3 mg BID starting yesterday with mild improvement in mood today, however he is upset the dose was increased and claims it causing his "head and eyes to hurt". He was offered Cogentin but quickly declines. His insight and judgment are poor. He continues to be irritable (although mild improvement is noted today), loud, intrusive and requires frequent redirection. A female peer complained to me today that he has been making inappropriate sexual jokes and hugging which makes her uncomfortable, and so his room was moved. Other peers have complained to nurses regarding hid loud, intrusive and threatening behaviors. He appears under-medicated, would benefit from an increased dose of antipsychotic with PERKINS prior to discharge, and would also benefit from a mood stabilizer such as Depakote however he continues to decline these today. Mental status exam: General Appearance: Patient appears to be stated age, dressed in casual attire. Behavior: He continues to be demanding, intrusive, irritable edge, poor social boundaries, increased energy/motor activity. Speech: Patient's speech is fluent and loud, with intimidating tone. Mood/Affect: Mood is irritable/upset, affect is labile. Suicidality/Homicidality: He denies SI/HI, intent or plan. Perceptions: He denies auditory or visual hallucinations. Though process: Argumentative, thought distortions Thought content: Grandiose, threatening, demanding. Memory and concentration: He is alert and oriented person, place and situation. Judgment and insight: Poor Assessment/Plan: Continue with current diagnosis. Patient continues to meet criteria for inpatient psychiatric admission for symptom stabilization and safety. Continue Risperdal ODT to 3 mg BID for psychosis and mood stabilization, with plan to transition to PERKINS prior to discharge due to his long history of noncompliance. He would benefit from the addition of a mood stabilizer such as Depakote however he is declining this today. Start Cogentin 0.5 mg BID for EPS. Monitor for medication compliance and for any psychotropic medication side effects. Will continue to monitor ongoing response to treatment. Encourage participation in milieu.
[2022-05-26] MEDS: LORazepam 1 MG TAB PO PRN ×2 (03:15→21:35)
[2022-05-26] MEDS: ACETAMINOPHEN TAB 325 MG TAB PO PRN ×2 (07:52→21:03)
[2022-05-26] MEDS ORDERED: PALIPERIDONE IM 234 MG/1.5 ML SYG IM STA (09:54)
--- NOTE | 2022-05-26 10:23 | P.PN ---
Progress Note - Text Progress Note Date: 05/26/22 Interval History: Patient was seen wandering the hallways and was directable and agreeable to speak with underwriter in the office. Currently, the patient is denying any suicidal or homicidal ideation, intention, and/or plan. Boarding any auditory or visual hallucinations. He is denying any paranoia however continues to endorse some roman catholic preoccupation and religiously themed delusions. He vehemently states that he has not God that he does speak to God. Furthermore, the patient continues to present with significant manic symptoms including mood lability, excessive energy, and admits to racing thoughts. The patient reports that he "has racing thoughts because I'm a man." He vehemently denies that he has bipolar disorder. He is however agreeable to transitioning to the long-acting injectable medication of Invega Sustenna. He expresses that he is unhappy with taking the Risperdal oral medication as he feels that he is expressing some side effects including feeling "like the Risperdal is causing my eyes to hurt and jump out of my head." Review of the patient's notes reveals that the patient has been making inappropriate sexual jokes towards peers. Mental Status Exam: General Appearance: Patient appears to be stated age is alert, mostly directable, and cooperative. Behavior: Patient displays elevated psychomotor activity. Speech: Patient's speech is slightly pressured and rapid. Mood/Affect: Mood is "doing great, and ready to go." Affect is expansive and labile. Suicidality/Homicidality: Patient denies having any suicidal or homicidal ideation intent or plan. Perceptions: Patient denies any visual hallucinations and denies any auditory hallucinations Though content/process: Religiously preoccupied, grandiose delusions, flight of ideas. Memory and concentration: AOX3, grossly intact for the purposes of this session Judgment and insight: Improving mildly, however at baseline appears to be somewhat poor Vital Signs Temp 98.1 F 05/25/22 04:04 Pulse 117 H 05/25/22 04:04 Resp 16 05/25/22 04:04 BP 114/71 05/25/22 04:04 Pulse Ox 96 05/25/22 04:04 FiO2 Intake & Output 05/25/22 05/26/22 05/26/22 18:59 06:59 18:59 Weight 92 kg Assessment Bipolar 1 disorder, manic episode Plan: -Patient continues to meet criteria for inpatient psychiatric admission for symptom stabilization and safety. Patient referred mental health court. -Medications: Continue Cogentin 0.5 mg by mouth twice a day for EPS side effects Start Invega Sustenna 234 mg IM for bipolar disorder with psychotic features. Risks, benefits, and [place] alternatives of this medication was discussed with the patient in detail. He is in agreement. Discontinue oral Risperdal -When necessary Ativan and Haldol for agitation/aggression. -SW on board for discharge planning. Encouraged the patient to participate in milieu.
[2022-05-26] MEDS: BENZTROPINE MESYLATE 0.5 MG TAB PO SCH ×2 (10:33→21:02)
[2022-05-26] MEDS: DOCUSATE 100 MG CAP PO SCH ×2 (10:33→21:02)
[2022-05-26] MEDS: risperiDONE ODT 1 MG TAB PO SCH (10:56)
--- NOTE | 2022-05-27 04:41 | XR ---
EXAMINATION TYPE: XR foot complete RT DATE OF EXAM: 05/27/2022 COMPARISON: NONE HISTORY: Foot pain TECHNIQUE: 3 views FINDINGS: Metatarsals are intact. The toes are intact. There is no evidence of fracture nor dislocati on. Joint spaces are normal. IMPRESSION: Negative right foot exam. No fracture.
[2022-05-27 06:37] VITALS: BP 125/81; PULSE 119; RESP 18; TEMP 97
[2022-05-27] MEDS: BENZTROPINE MESYLATE 0.5 MG TAB PO SCH (08:14)
[2022-05-27] MEDS: DOCUSATE 100 MG CAP PO SCH (08:14)
[2022-05-27] MEDS: ACETAMINOPHEN TAB 325 MG TAB PO PRN (08:15)
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
== END 2022-05-27 13:08 | disposition home or self-care (01) | DRG 885 ==
LOC: EC 12:49 → 3MHU 22:11
PROVIDERS: ADMIT Psychiatry & Neurology Psychiatry; ATTEND Psychiatry & Neurology Psychiatry
DX: F31.2 Bipolar disorder, current episode manic severe with psychotic features (principal); F31.64 Bipolar disorder, current episode mixed, severe, with psychotic features; Z20.822 Contact with and (suspected) exposure to COVID-19; K42.9 Umbilical hernia without obstruction or gangrene; F31.9 Bipolar disorder, unspecified; F60.81 Narcissistic personality disorder; F10.10 Alcohol abuse, uncomplicated; Z81.8 Family history of other mental and behavioral disorders; Z91.14 Patient's other noncompliance with medication regimen; Z79.899 Other long term (current) drug therapy; Z91.51 Personal history of suicidal behavior; Z63.5 Disruption of family by separation and divorce; Z91.199 Patient's noncompliance with other medical treatment and regimen due to unspecified reason
CPT/HCPCS: 80053; 80061; 80306; 82075; 83036; 84443; 85025; 87635; 96372; 99285

== ENCOUNTER 2022-06-29 17:01 | Inpatient (IN) | payer OTHER ==
[2022-06-29 18:20] LABS: Appearance,Urine Clear (Clear); Bilirubin,Urine Negative (Negative); Blood,Urine Negative (Negative); Color,Urine Light Yellow; Glucose,Urine (UA) Negative (Negative); Ketones,Urine Negative (Negative); Leukocyte Esterase,Urine Negative (Negative); Nitrite,Urine Negative (Negative); PH, Urine 6.5 (5.0-8.0); Protein,Urine Negative (Negative); Specific Gravity,Urine 1.014 (1.001-1.035); Urobilinogen,Urine <2.0 mg/dL (<2.0)
[2022-06-29 18:38] LABS: Amphetamine Screen,Urine Not Detected (NotDetected); Barbiturate Screen,Urine Not Detected (NotDetected); Benzodiazepines Screen,Urine Not Detected (NotDetected); Cocaine Screen,Urine Not Detected (NotDetected); Methadone Screen, Urine Not Detected (NotDetected); Opiate Screen,Urine Not Detected (NotDetected); Oxycodone Screen, Urine Not Detected (NotDetected); Phencyclidine Screen,Urine Not Detected (NotDetected); Tricyclic Antidepressant,Urine Not Detected (NotDetected); Urn Cannabinoid Scrn Not Detected (NotDetected)
[2022-06-29] MEDS ORDERED: PALIPERIDONE IM 156 MG/ML SYG IM ONE (20:00)
[2022-06-29] MEDS ORDERED: HALOPERIDOL LACTATE 5 MG/ML 1 ML VIAL IM STA (20:48)
[2022-06-29] MEDS ORDERED: LORazepam 2 MG/ML INJ IM STA (20:49)
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
[2022-06-30 02:37] LABS: Basophils # (A) 0.1 k/uL (0-0.2); Basophils % (A) 1 %; Eosinophils # (A) 0.1 k/uL (0-0.7); Eosinophils % (A) 2 %; HCT 48.2 % (39.0-53.0); Lymphocytes # (A) 1.9 k/uL (1.0-4.8); Lymphocytes % (A) 27 %; MCH 29.8 pg (25.0-35.0); MCHC 33.2 g/dL (31.0-37.0); Mean Platelet Volume 6.9; Monocytes # (A) 0.5 k/uL (0-1.0); Monocytes % (A) 7 %; Neutrophils # (A) 4.1 k/uL (1.3-7.7); Neutrophils % (A) 60 %; Platelet Count 243 k/uL (150-450); RBC 5.36 m/uL (4.30-5.90); RDW 11.9 % (11.5-15.5); WBC 6.9 k/uL (3.8-10.6)
[2022-06-30 02:58] LABS: ALT 51 U/L (4-49); AST 47 U/L (17-59); African American GFR (CKD) >90 (>60 ml/min/1.73 sqM); Albumin 4.2 g/dL (3.5-5.0); Alkaline Phosphatase 80 U/L (38-126); Anion Gap 7 mmol/L; Blood Urea Nitrogen 18 mg/dL (9-20); Calcium 9.1 mg/dL (8.4-10.2); Carbon Dioxide 25 mmol/L (22-30); Chloride 106 mmol/L (98-107); Glucose 98 mg/dL (74-99); Non-African American GFR(CKD) >90 (>60 ml/min/1.73 sqM); Potassium 5.2 mmol/L (3.5-5.1); Sodium 138 mmol/L (137-145); Total Bilirubin 1.6 mg/dL (0.2-1.3); Total Protein 7.1 g/dL (6.3-8.2)
[2022-06-30] MEDS ORDERED: HALOPERIDOL LACTATE 5 MG/ML 1 ML VIAL IM STA (06:00)
[2022-06-30] MEDS ORDERED: LORazepam 2 MG/ML INJ IM STA ×2 (06:02→12:32)
[2022-06-30 09:10] VITALS: RESP 18
[2022-06-30] MEDS ORDERED: ZIPRASIDONE 20 MG VIAL IM STA (12:32)
[2022-06-30] MEDS ORDERED: HALOPERIDOL LACTATE 5 MG/ML 1 ML VIAL IM PRN (20:57)
[2022-06-30] MEDS ORDERED: MAG HYDROX/AL HYDROX/SIMETH 355 ML BOTTLE PO PRN (20:57)
[2022-06-30] MEDS ORDERED: LORazepam 2 MG/ML INJ IM PRN (21:08)
[2022-06-30] MEDS ORDERED: haloperidoL 5 MG TAB PO PRN (21:08)
[2022-07-01] MEDS: LORazepam 1 MG TAB PO PRN (01:00)
--- NOTE | 2022-07-01 03:24 | P.PN ---
Progress Note - Text Progress Note Date: 06/30/22 Attempted to see the patient in the mental health unit at 2200 on 06/30. The patient refused to be seen or be evaluated.
[2022-07-01] MEDS: ACETAMINOPHEN TAB 325 MG TAB PO PRN (04:37)
[2022-07-01] MEDS ORDERED: NON FORMULARY DRUG (Flaxseed Oil [Omega-3 Flaxseed Oil] 1,000 MG Capsule) PO SCH (09:00)
[2022-07-01] MEDS: CYANOCOBALAMIN 500 MCG TAB PO SCH (10:44)
[2022-07-01] MEDS: MULTIVITAMINS, THERA 1 EACH TAB PO SCH (10:44)
[2022-07-01] MEDS: ASCORBIC ACID 500 MG TAB PO SCH (10:44)
[2022-07-01] MEDS: NICOTINE 14MG/24HR PATCH TRANSDERM SCH (10:44)
--- NOTE | 2022-07-01 12:19 | P.HP ---
Psychiatric H&P - . H&P Date: 07/01/22 History & Physical: Allergies Allergy/AdvReac Type Severity Reaction Status Date / Time No Known Allergies Allergy Verified 06/30/22 07:57 Vital Signs Temp 98.5 F 07/01/22 06:30 Pulse 111 H 07/01/22 06:30 Resp 18 07/01/22 06:30 BP 122/77 07/01/22 06:30 Pulse Ox 96 07/01/22 06:30 FiO2 Intake & Output 06/30/22 07/01/22 07/01/22 18:59 06:59 18:59 Weight 86.721 kg Laboratory Last Values WBC 6.9 k/uL (3.8-10.6) 06/30/22 02:20 RBC 5.36 m/uL (4.30-5.90) 06/30/22 02:20 Hgb 16.0 gm/dL (13.0-17.5) 06/30/22 02:20 Hct 48.2 % (39.0-53.0) 06/30/22 02:20 MCV 90.0 fL (80.0-100.0) 06/30/22 02:20 MCH 29.8 pg (25.0-35.0) 06/30/22 02:20 MCHC 33.2 g/dL (31.0-37.0) 06/30/22 02:20 RDW 11.9 % (11.5-15.5) 06/30/22 02:20 Plt Count 243 k/uL (150-450) 06/30/22 02:20 MPV 6.9 06/30/22 02:20 Neutrophils % 60 % 06/30/22 02:20 Lymphocytes % 27 % 06/30/22 02:20 Monocytes % 7 % 06/30/22 02:20 Eosinophils % 2 % 06/30/22 02:20 Basophils % 1 % 06/30/22 02:20 Neutrophils # 4.1 k/uL (1.3-7.7) 06/30/22 02:20 Lymphocytes # 1.9 k/uL (1.0-4.8) 06/30/22 02:20 Monocytes # 0.5 k/uL (0-1.0) 06/30/22 02:20 Eosinophils # 0.1 k/uL (0-0.7) 06/30/22 02:20 Basophils # 0.1 k/uL (0-0.2) 06/30/22 02:20 Sodium 138 mmol/L (137-145) 06/30/22 02:20 Potassium 5.2 mmol/L (3.5-5.1) H 06/30/22 02:20 Chloride 106 mmol/L (98-107) 06/30/22 02:20 Carbon Dioxide 25 mmol/L (22-30) 06/30/22 02:20 Anion Gap 7 mmol/L 06/30/22 02:20 BUN 18 mg/dL (9-20) 06/30/22 02:20 Creatinine 0.80 mg/dL (0.66-1.25) 06/30/22 02:20 Est GFR (CKD-EPI)AfAm >90 (>60 ml/min/1.73 sqM) 06/30/22 02:20 Est GFR (CKD-EPI)NonAf >90 (>60 ml/min/1.73 sqM) 06/30/22 02:20 Glucose 98 mg/dL (74-99) 06/30/22 02:20 Calcium 9.1 mg/dL (8.4-10.2) 06/30/22 02:20 Total Bilirubin 1.6 mg/dL (0.2-1.3) H 06/30/22 02:20 AST 47 U/L (17-59) 06/30/22 02:20 ALT 51 U/L (4-49) H 06/30/22 02:20 Alkaline Phosphatase 80 U/L (38-126) 06/30/22 02:20 Total Protein 7.1 g/dL (6.3-8.2) 06/30/22 02:20 Albumin 4.2 g/dL (3.5-5.0) 06/30/22 02:20 Urine Color Light Yellow 06/29/22 17:45 Urine Appearance Clear (Clear) 06/29/22 17:45 Urine pH 6.5 (5.0-8.0) 06/29/22 17:45 Ur Specific [place] 1.014 (1.001-1.035) 06/29/22 17:45 Urine Protein Negative (Negative) 06/29/22 17:45 Urine Glucose (UA) Negative (Negative) 06/29/22 17:45 Urine Ketones Negative (Negative) 06/29/22 17:45 Urine Blood Negative (Negative) 06/29/22 17:45 Urine Nitrite Negative (Negative) 06/29/22 17:45 Urine Bilirubin Negative (Negative) 06/29/22 17:45 Urine Urobilinogen <2.0 mg/dL (<2.0) 06/29/22 17:45 Ur Leukocyte Esterase Negative (Negative) 06/29/22 17:45 Urine Opiates Screen Not Detected (NotDetected) 06/29/22 17:45 Ur Oxycodone Screen Not Detected (NotDetected) 06/29/22 17:45 Urine Methadone Screen Not Detected (NotDetected) 06/29/22 17:45 Ur Propoxyphene Screen Not Detected (NotDetected) 06/29/22 17:45 Ur Barbiturates Screen Not Detected (NotDetected) 06/29/22 17:45 U Tricyclic Antidepress Not Detected (NotDetected) 06/29/22 17:45 Ur Phencyclidine Scrn Not Detected (NotDetected) 06/29/22 17:45 Ur Amphetamines Screen Not Detected (NotDetected) 06/29/22 17:45 U Methamphetamines Scrn Not Detected (NotDetected) 06/29/22 17:45 U Benzodiazepines Scrn Not Detected (NotDetected) 06/29/22 17:45 Urine Cocaine Screen Not Detected (NotDetected) 06/29/22 17:45 U Marijuana (THC) Screen Not Detected (NotDetected) 06/29/22 17:45 Coronavirus (PCR) Not Detected (Not Detectd) 06/30/22 02:20 07/01/22 12:18 IDENTIFYING DATA: Patient is a , self-employed, 52-year-old male with significant history of bipolar disorder, who presents to the hospital for manic and dangerous behaviors. HPI: Patient presented to the hospital on 06/30/2022, brought into the emergency department under petition by the police. As per petition, "the patient made statements that he is God and sees demons on people, and made threats of violence towards his demons." He was also noted to be "carrying a weed whip around the streets of [place], and possible home invasion/larceny of keys from his sister's residence." Upon assessment by EPS, the patient reported that he did not remember anything that happened. He did not remember being brought in to the emergency department by police. The patient did receive Invega Sustenna 234 mg IM in the emergency department along with Haldol and Ativan. When assessed at 2 AM last night, the patient was noted by the EPS nurse to be calm and cooperative. He was vague and responded minimally. However denied any suicidal or homicidal ideation, intention, and/or plan. The patient was subsequently admitted to the psychiatric unit. Currently, the patient is under deferral status. However attempts by this provider to speak with the patient was met with oppositional behavior. The patient the patient has been observed in the milieu to be calm and cooperative and directable. However when trying to be assessed by this provider, the patient while he states that he does not want to speak with any doctor. He was noted by staff to sleep last night. Multiple times by this provider speak with him was met with the patient not engaging in the interview and asking to be left alone. PAST PSYCHIATRIC HISTORY: As per chart review Past diagnosis: Bipolar I disorder Past psychiatric medications: Depakote, Abilify Maintena, Cogentin, Thorazine, Prolixin. History of court ordered treatment. The patient received Invega Sustenna 234 mg IM in the emergency department prior to this admission. Prrevious psychiatric hospitalizations: Multiple, three times prior at [facility] in May 2022, and previously 2018, 2016 and 2014. [facility] outpatient follow[facility]: [facility] History of suicide attempts in the past: Not known at this time due to lack of cooperation [facility] Additional Past Medical History / Comment(s): Hernia History of Any Multi-Drug Resistant Organisms: None Reported Past Surgical History: Hernia Repair Past Anesthesia/Blood Transfusion Reactions: No Reported Reaction Past Psychological History: Bipolar Smoking Status: Never smoker Past Alcohol Use History: None Reported Past Drug Use History: None Reported ALLERGIES: NO KNOWN DRUG ALLERGIES CHEMICAL DEPENDENCY HISTORY: Urinary drug screen is negative. FAMILY PSYCHIATRIC/SUBSTANCE USE HISTORY: As per chart review, his mother and brother are noted to have mood disorders including bipolar disorder. SOCIAL HISTORY: As per chart review: , has 4 children, lives in [place] alone, reports he is estranged from his . MENTAL STATUS EXAM: General Appearance: Patient appears to be stated age is alert, however not directable or willing to cooperate. Hygiene and grooming appears to be appropriate. Behavior: Patient is seated without any agitated behavior. Attempts to interview the patient is met with him loudly stating that he wanted to be left alone. Speech: Patient's speech is minimally responsive except for requesting to be left alone. Mood/Affect: Patient mood cannot be assessed at this time , affect irritable. Suicidality/Homicidality: Unable to assess at this time. Perceptions: Unable to assess at this time. Though content/process: Unable to assess at this time. Just wants to be left alone. Memory and concentration: Unable to assess at this time. Judgment and insight: poor STRENGTHS/WEAKNESSES: Strength is that the patient actually appears to be more stable than his previous admission and appears to be less overtly manic or psychotic. He was also reported to have slept last night. Weakness is that the patient has severe mental illness and poor adherence with prescribed medicatio ns. INTELLECT: average IMPRESSIONS: Bipolar 1 disorder, manic episode, severe with psychotic features Noncompliance with treatment PLAN: -Patient is admitted under involuntarily status to [facility] for stabilization of psychiatric symptoms and safety. Patient is currently under deferral status. He did receive his long-acting injectable Invega Sustenna 234 mg IM in the emergency department. We will monitor at this time. The patient refuses any interventions or continues to not speak with this provider, we will file a demand for court. -Medications : Invega Sustenna 234 mg IM was administered on 06/30/22. -Ativan and Haldol PRN for agitation/aggression -Attempts to discuss medications as well as counseling on substance use was met with futility as the patient refused to engage in the psychiatric interview. -Internal Medicine consult to perform medical evaluation and physical. -NRT - nicotine patch -SW on board for discharge planning. Encourage patient to participate in groups to work on coping skills. 07/01/22 12:18
[2022-07-02] MEDS: ACETAMINOPHEN TAB 325 MG TAB PO PRN ×2 (03:06→14:37)
[2022-07-02] MEDS: MAGNESIUM HYDROXIDE 2,400 MG/10 ML CUP PO PRN ×2 (03:18→14:37)
[2022-07-02] MEDS: CYANOCOBALAMIN 500 MCG TAB PO SCH (08:24)
[2022-07-02] MEDS: MULTIVITAMINS, THERA 1 EACH TAB PO SCH (08:24)
[2022-07-02] MEDS: ASCORBIC ACID 500 MG TAB PO SCH (08:25)
[2022-07-02] MEDS: NICOTINE 14MG/24HR PATCH TRANSDERM SCH (08:26)
[2022-07-02] MEDS ORDERED: PALIPERIDONE IM 234 MG/1.5 ML SYG IM ONE (09:00)
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
[2022-07-03] MEDS: ACETAMINOPHEN TAB 325 MG TAB PO PRN ×2 (01:35→07:49)
[2022-07-03] MEDS: LORazepam 1 MG TAB PO PRN (02:15)
[2022-07-03 06:51] VITALS: BP 117/74; PULSE 105; TEMP 98.1
[2022-07-03] MEDS: CYANOCOBALAMIN 500 MCG TAB PO SCH (07:49)
[2022-07-03] MEDS: MULTIVITAMINS, THERA 1 EACH TAB PO SCH (07:49)
[2022-07-03] MEDS: ASCORBIC ACID 500 MG TAB PO SCH (07:49)
--- NOTE | 2022-07-03 11:50 | P.DS ---
Providers Date of admission: 06/30/22 20:55 Expected date of discharge: 07/03/22 Attending physician: Zak Pollard MD Consults: 06/30/22 20:57 Consult Physician Routine Consulting Provider: Xuan Physician Consult Reason/Comments: H&P and medical Do you want consulting provider notified?: Yes Primary care physician: Stated None - Discharge Diagnosis(es) (1) Severe manic bipolar 1 disorder with psychotic behavior Current Visit: Yes Status: Acute Priority: High (2) Noncompliance with medications Current Visit: Yes Status: Chronic Priority: Medium Hospital Course: Admission HPI: Patient is a , self-employed, 52-year-old male with significant history of bipolar disorder, who presents to the hospital for manic and dangero us behaviors. Patient presented to the hospital on 06/30/2022, brought into the emergency department under petition by the police. As per petition, "the patient made statements that he is God and sees demons on people, and made threats of violence towards his demons." He was also noted to be "carrying a weed whip around the streets of [place], and possible home invasion/larceny of keys from his sister's residence." Upon assessment by EPS, the patient reported that he did not remember anything that happened. He did not remember being brought in to the emergency department by police. The patient did receive Invega Sustenna 234 mg IM in the emergency department along with Haldol and Ativan. When assessed at 2 AM last night, the patient was noted by the EPS nurse to be calm and cooperative. He was vague and responded minimally. However denied any suicidal or homicidal ideation, intention, and/or plan. The patient was subsequently admitted to the psychiatric unit. Currently, the patient is under deferral status. However attempts by this provider to speak with the patient was met with oppositional behavior. The patient the patient has been observed in the milieu to be calm and cooperative and directable. However when trying to be assessed by this provider, the patient while he states that he does not want to speak with any doctor. He was noted by staff to sleep last night. Multiple times by this provider speak with him was met with the patient not engaging in the interview and asking to be left alone. PAST PSYCHIATRIC HISTORY: As per chart review Past diagnosis: Bipolar I disorder Past psychiatric medications: Depakote, Abilify Maintena, Cogentin, Thorazine, Prolixin. History of court ordered treatment. The patient received Invega Sustenna 234 mg IM in the emergency department prior to this admission. Prrevious psychiatric hospitalizations: Multiple, three times prior at [facility] in May 2022, and previously 2018, 2016 and 2013. Psychiatric outpatient follow-up: [facility] History of suicide attempts in the past: Not known at this time due to lack of cooperation Hospital course: Upon admission to the unit patient was initially obstinate and uncooperative at this provider however did receive Invega Sustenna long-acting injectable medication in the emergency department prior to this admission. The following day, the patient was cooperative and polite to this provider. He tolerated the administration of the medication well. During this hospitalization, the patient was noted to be calm, cooperative, and directable. Occasionally he would have episodes of intrusiveness with staff however was always directable and did not raise his voice. He was sleeping well and eating well. He was also seen by the medical team for history and physical examination. On the day of discharge, the patient is not reporting any suicidal or homicidal ideation, intention, and/or plan. He is not reporting any auditory or visual hallucinations. He is denying any paranoia or other delusions. He has been adherent with his medication and is not endorsing any significant side effects. He is open to taking Seroquel and outpatient setting to help him with sleep. He would also like Cogentin for EPS side effects. The patient was counseled at length on the importance of medication adherence and appropriate outpatient follow-up. He is also counseled on abstaining from all substances including alcohol, tobacco, marijuana, and illicit drugs. As the patient did not display any acute criteria for inpatient psychiatric hospitalization for the past 48-72 hours, he was subsequently discharged. Mental status exam: General Appearance: Patient appears to be stated age is alert, pleasant, and cooperative. Patient is in no acute distress and has fair hygiene and grooming Behavior: Patient is calmly seated without any agitated behavior. Speech: Patient's speech is fluent and nonpressured. Mood/Affect: Patient reports their mood is "feeling good doc.", affect is congruent and euthymic. Suicidality/Homicidality: Patient denies having any suicidal or homicidal ideation intent or plan. Perceptions: Patient denies any auditory or visual hallucinations. Though content/process: There is no evidence of any delusional thought content and thought process is linear and goal-directed. Patient is future oriented Memory and concentration: AOX3, grossly intact for the purposes of this session. Can spell "WORLD" backwards correctly. Judgment and insight: Improved with guarded prognosis Impression: Bipolar 1 disorder, manic episode, severe with psychotic features Noncompliance with treatment Plan: -Continue with discharge today as patient has improved and stabilized psychiatrically and is not currently an imminent threat to himself and/or others. Patient will remain at chronically elevated risk for harm to self and/or others due to his impulsivity and severity of his bipolar disorder. -Continue medications: Seroquel 50 mg daily as needed for insomnia - Patient is on dual antipsychotic therapy with invega but due to severity of symptoms we feel that it is warranted. Outpatient follow-up can determine whether to continue seroquel or have monotherapy with invega. Invega sustenna 156 mg IM was administered on 06/30/2022. Benztropine 0.5 mg twice daily for EPS side effects Multivitamin and b12. -Patient was counseled on the need for medication compliance and appropriate follow-up at mental health and also primary care for medical issues. Patient verbalized understanding and agreed. -Social work to arrange for and conduct family meeting to ensure safety upon discharge and answer any questions/concerns. Social work also to arrange for patients follow up appointments with [facility] for psychiatric care along with follow up with primary care provider. -Patient counseled on abstaining from recreational drugs and marijuana and alcohol. Was informed/educated on the adverse effects on their physical and mental health. Patient verbally agreed and understood. Patient was offered substance abuse treatment however declined at this time. -Patient was instructed to return to the hospital or seek immediate medical care if their psychiatric or medical symptoms do worsen or reoccur. -Psychoeducation and supportive therapy provided to patient. Risks and benefits of pharmacological treatment versus the risks and benefits of nontreatment weight and discussed. Informed consent discussion held. Common side effects of psychotropics discussed such as, but not limited to headache, GI disturbance, sexual dysfunction, movement disorders, sedation, and orthostatic hypotension. Life threatening and blackbox warnings of prescribed medications also discussed. Potential risks of operating a vehicle or heavy machinery discussed with patient at length. Advised on importance of compliance and a reliable and responsible manner. Patient advised to review FDA consumer labeling of all medications prior to taking. Patient verbalized understanding of potential risks, and agrees with current treatment plan. Patient advised to medically contact physician/emergency personnel if any acute changes in condition occur. Vital Signs Temp 98.1 F 07/03/22 06:50 Pulse 105 H 07/03/22 06:50 Resp 18 07/03/22 06:50 BP 117/74 07/03/22 06:50 Pulse Ox 100 07/03/22 06:50 FiO2 Laboratory Results WBC 6.9 k/uL (3.8-10.6) 06/30/22 02:20 RBC 5.36 m/uL (4.30-5.90) 06/30/22 02:20 Hgb 16.0 gm/dL (13.0-17.5) 06/30/22 02:20 Hct 48.2 % (39.0-53.0) 06/30/22 02:20 MCV 90.0 fL (80.0-100.0) 06/30/22 02:20 MCH 29.8 pg (25.0-35.0) 06/30/22 02:20 MCHC 33.2 g/dL (31.0-37.0) 06/30/22 02:20 RDW 11.9 % (11.5-15.5) 06/30/22 02:20 Plt Count 243 k/uL (150-450) 06/30/22 02:20 MPV 6.9 06/30/22 02:20 Neutrophils % 60 % 06/30/22 02:20 Lymphocytes % 27 % 06/30/22 02:20 Monocytes % 7 % 06/30/22 02:20 Eosinophils % 2 % 06/30/22 02:20 Basophils % 1 % 06/30/22 02:20 Neutrophils # 4.1 k/uL (1.3-7.7) 06/30/22 02:20 Lymphocytes # 1.9 k/uL (1.0-4.8) 06/30/22 02:20 Monocytes # 0.5 k/uL (0-1.0) 06/30/22 02:20 Eosinophils # 0.1 k/uL (0-0.7) 06/30/22 02:20 Basophils # 0.1 k/uL (0-0.2) 06/30/22 02:20 Sodium 138 mmol/L (137-145) 06/30/22 02:20 Potassium 5.2 mmol/L (3.5-5.1) H 06/30/22 02:20 Chloride 106 mmol/L (98-107) 06/30/22 02:20 Carbon Dioxide 25 mmol/L (22-30) 06/30/22 02:20 Anion Gap 7 mmol/L 06/30/22 02:20 BUN 18 mg/dL (9-20) 06/30/22 02:20 Creatinine 0.80 mg/dL (0.66-1.25) 06/30/22 02:20 Est GFR (CKD-EPI)AfAm >90 (>60 ml/min/1.73 sqM) 06/30/22 02:20 Est GFR (CKD-EPI)NonAf >90 (>60 ml/min/1.73 sqM) 06/30/22 02:20 Glucose 98 mg/dL (74-99) 06/30/22 02:20 Calcium 9.1 mg/dL (8.4-10.2) 06/30/22 02:20 Total Bilirubin 1.6 mg/dL (0.2-1.3) H 06/30/22 02:20 AST 47 U/L (17-59) 06/30/22 02:20 ALT 51 U/L (4-49) H 06/30/22 02:20 Alkaline Phosphatase 80 U/L (38-126) 06/30/22 02:20 Total Protein 7.1 g/dL (6.3-8.2) 06/30/22 02:20 Albumin 4.2 g/dL (3.5-5.0) 06/30/22 02:20 Urine Color Light Yellow 06/29/22 17:45 Urine Appearance Clear (Clear) 06/29/22 17:45 Urine pH 6.5 (5.0-8.0) 06/29/22 17:45 Ur Specific [place] 1.014 (1.001-1.035) 06/29/22 17:45 Urine Protein Negative (Negative) 06/29/22 17:45 Urine Glucose (UA) Negative (Negative) 06/29/22 17:45 Urine Ketones Negative (Negative) 06/29/22 17:45 Urine Blood Negative (Negative) 06/29/22 17:45 Urine Nitrite Negative (Negative) 06/29/22 17:45 Urine Bilirubin Negative (Negative) 06/29/22 17:45 Urine Urobilinogen <2.0 mg/dL (<2.0) 06/29/22 17:45 Ur Leukocyte Esterase Negative (Negative) 06/29/22 17:45 Urine Opiates Screen Not Detected (NotDetected) 06/29/22 17:45 Ur Oxycodone Screen Not Detected (NotDetected) 06/29/22 17:45 Urine Methadone Screen Not Detected (NotDetected) 06/29/22 17:45 Ur Propoxyphene Screen Not Detected (NotDetected) 06/29/22 17:45 Ur Barbiturates Screen Not Detected (NotDetected) 06/29/22 17:45 U Tricyclic Antidepress Not Detected (NotDetected) 06/29/22 17:45 Ur Phencyclidine Scrn Not Detected (NotDetected) 06/29/22 17:45 Ur Amphetamines Screen Not Detected (NotDetected) 06/29/22 17:45 U Methamphetamines Scrn Not Detected (NotDetected) 06/29/22 17:45 U Benzodiazepines Scrn Not Detected (NotDetected) 06/29/22 17:45 Urine Cocaine Screen Not Detected (NotDetected) 06/29/22 17:45 U Marijuana (THC) Screen Not Detected (NotDetected) 06/29/22 17:45 Coronavirus (PCR) Not Detected (Not Detectd) 06/30/22 02:20 Allergies Allergy/AdvReac Type Severity Reaction Status Date / Time No Known Allergies Allergy Verified 06/30/22 07:57 Patient Condition at Discharge: Stable Plan - Discharge Summary New Discharge Prescriptions: New QUEtiapine [SEROquel] 50 mg PO DAILY PRN 15 Days tablet PRN Reason: For insomnia Cyanocobalamin [Vitamin B-12] 1,000 mcg PO DAILY 30 Days tab Benztropine Mesylate 0.5 mg PO BID 1 Days #15 tab Multivitamins, Thera [Multivitamin (formulary)] 1 each PO DAILY 30 Days tab Continue flaxseed oiL [[place]-3 Flaxseed Oil] 1,000 mg PO DAILY Ascorbic Acid [Vitamin C] 1,000 mg PO DAILY Changed Paliperidone IM [Invega Sustenna] 156 mg IM DIRECTED #1 ml Discontinued Multivitamins, Thera [Multivitamin (formulary)] 1 tab PO DAILY Cyanocobalamin (Vitamin B-12) [Vitamin B-12] 1,000 mcg PO DAILY Benztropine Mesylate [Cogentin] 1 mg PO BID PRN PRN Reason: stiffness Paliperidone IM [Invega Sustenna] 234 mg IM DIRECTED Discharge Medication List Ascorbic Acid [Vitamin C] 1,000 mg PO DAILY 06/30/22 [History] flaxseed oiL [[place]-3 Flaxseed Oil] 1,000 mg PO DAILY 06/30/22 [History] Benztropine Mesylate 0.5 mg PO BID 1 Days #15 tab 07/03/22 [Rx] Cyanocobalamin [Vitamin B-12] 1,000 mcg PO DAILY 30 Days tab 07/03/22 [Rx] Multivitamins, Thera [Multivitamin (formulary)] 1 each PO DAILY 30 Days tab 07/03/22 [Rx] Paliperidone IM [Invega Sustenna] 156 mg IM DIRECTED #1 ml 07/03/22 [Rx] QUEtiapine [SEROquel] 50 mg PO DAILY PRN 15 Days tablet 07/03/22 [Rx] Follow up Appointment(s)/Referral(s): Jolynn Schmidt [Outside] - 07/09/22 9:00 am (07-09-22 at 9:00 with Ernesto Poe 07-16-22 at 3:15 with VILMA Alvarez Traer Office phone number ) [facility] [NON-STAFF] - 1 Week Patient Instructions/Handouts: Bipolar Disorder (DC), Abuse of Alcohol (DC), Help Prevent Suicide (DC), Psychotic Disorder (DC) Activity/Diet/Wound Care/Special Instructions: Avoid the use of street drugs and alcohol. Take all prescriptions as prescribed. When you are in need of refills on your medications, please contact your medical provider and/or outpatient psychiatrist to have this done. Please go to scheduled outpatient appointment for aftercare treatment. If symptoms return or become worse, call the crisis line at and/or go to the nearest emergency room for evaluation Discharge Disposition: HOME SELF-CARE
== END 2022-07-03 13:58 | disposition home or self-care (01) | DRG 885 ==
LOC: EC 17:01 → 3MHU 06-30 20:55
PROVIDERS: ADMIT Psychiatry & Neurology Psychiatry; ATTEND Psychiatry & Neurology Psychiatry
DX: F31.2 Bipolar disorder, current episode manic severe with psychotic features (principal); F10.90 Alcohol use, unspecified, uncomplicated; R45.850 Homicidal ideations; Y90.1 Blood alcohol level of 20-39 mg/100 ml; Z20.822 Contact with and (suspected) exposure to COVID-19; Y04.0XXA Assault by unarmed brawl or fight, initial encounter; Z91.14 Patient's other noncompliance with medication regimen; Z79.899 Other long term (current) drug therapy; Z81.8 Family history of other mental and behavioral disorders; Z63.5 Disruption of family by separation and divorce; Z91.199 Patient's noncompliance with other medical treatment and regimen due to unspecified reason; Z65.3 Problems related to other legal circumstances
CPT/HCPCS: 36415; 80053; 80306; 81003; 82075; 85025; 87635; 96372; 99285

== ENCOUNTER 2022-07-17 15:43 | Inpatient (IN) | payer OTHER, MEDICAID ==
[2022-07-17 17:47] LABS: Amphetamine Screen,Urine Not Detected (NotDetected); Barbiturate Screen,Urine Not Detected (NotDetected); Benzodiazepines Screen,Urine Not Detected (NotDetected); Cocaine Screen,Urine Not Detected (NotDetected); Methadone Screen, Urine Not Detected (NotDetected); Opiate Screen,Urine Not Detected (NotDetected); Oxycodone Screen, Urine Not Detected (NotDetected); Phencyclidine Screen,Urine Not Detected (NotDetected); Tricyclic Antidepressant,Urine Not Detected (NotDetected); Urn Cannabinoid Scrn Not Detected (NotDetected)
--- NOTE | 2022-07-17 19:17 | ED ---
General Adult HPI - General Chief complaint: Psychiatric Symptoms Stated complaint: Mental health eval Time Seen by Provider: 07/17/22 16:27 Source: patient, police, RN notes reviewed, old records reviewed Mode of arrival: ambulatory Limitations: no limitations - History of Present Illness Initial comments: Patient is a 52-year-old male with past medical history remarkable for psychiatric illness presents emergency Department being brought in by police. Patient was petitioned by police. Patient was making sexual comments that females, has flight of ideas, is laughing uncontrollably. Denies any visual or auditory hallucinations. He endorses suicidal ideations but denies plans or attempts. Denies homicidal ideations, attempts, plans. Denies any visual or auditory hallucinations. His no other acute complaint at this time. Denies any alcohol or drug use. Presents for further evaluation at this time. - Related Data Home Medications Medication Instructions Recorded Confirmed Ascorbic Acid [Vitamin C] 1,000 mg PO DAILY 06/30/22 06/30/22 flaxseed oiL [[place]-3 Flaxseed Oil] 1,000 mg PO DAILY 06/30/22 06/30/22 Previous Rx's Medication Instructions Recorded Benztropine Mesylate 0.5 mg PO BID 1 Days #15 tab 07/03/22 Cyanocobalamin [Vitamin B-12] 1,000 mcg PO DAILY 30 Days tab 07/03/22 Multivitamins, Thera [Multivitamin 1 each PO DAILY 30 Days tab 07/03/22 (formulary)] Paliperidone IM [Invega Sustenna] 156 mg IM DIRECTED #1 ml 07/03/22 QUEtiapine [SEROquel] 50 mg PO DAILY PRN 15 Days tablet 07/03/22 Allergies Allergy/AdvReac Type Severity Reaction Status Date / Time No Known Allergies Allergy Verified 06/30/22 07:57 Review of Systems ROS Statement: Those systems with pertinent positive or pertinent negative responses have been documented in the HPI. Review of Systems: CONST: Denies fever EYES: Denies blurry vision ENT: Denies nasal congestion C/V: Denies Chest pain RESP: Denies shortness of breath GI: Denies abdominal pain : Denies dysuria SKIN: Denies rash. MSK: Denies joint pain. NEURO: Denies headache PSYCH: Denies suicidal and homicidal ideations/plans/attempts. Denies visual or auditory hallucinations. ROS Other: All systems not noted in ROS Statement are negative. Past Medical History Additional Past Medical History / Comment(s): Hernia History of Any Multi-Drug Resistant Organisms: None Reported Past Surgical History: Hernia Repair Past Anesthesia/Blood Transfusion Reactions: No Reported Reaction Past Psychological History: Bipolar Smoking Status: Never smoker Past Alcohol Use History: None Reported Past Drug Use History: None Reported - Past Family History Father Additional Family Medical History / Comment(s): Father is 80 years old with no major medical problems. Mother Additional Family Medical History / Comment(s): Mother is 81 years old with no major medical problems. Brother(s) Additional Family Medical History / Comment(s): He has 4 brothers and 2 sisters with no medical problems. Patient has 3 daughters and 1 son that are healthy. General Exam - General Exam Comments Initial Comments: General: Appears in no acute distress. HEAD: Normal with no signs of head trauma. EYES: PERRLA, EOMI, conjunctiva normal, no discharge. ENT: Hearing grossly intact, normal oropharynx. RESPIRATORY: Clear breath sounds bilaterally. No wheezes, rales, or rhonchi. C/V: Regular rate and rhythm. S1 and S2 auscultated, no edema, peripheral pulses 2+ and intact throughout ABD: Abd is soft, nontender, nondistended EXT: Normal range of motion, no obvious deformity SKIN: No rashes or lesions observed on exposed skin. NEURO: Alert and oriented 4. No focal deficits. Limitations: no limitations Course Vital Signs 07/17/22 07/17/22 16:21 20:44 Temperature 97.7 F Pulse Rate 100 Respiratory 20 18 Rate Blood Pressure 117/86 O2 Sat by Pulse 98 Oximetry Medical Decision Making - Medical Decision Making Was pt. sent in by a medical professional or institution (, PA, GRINDER OPERATOR SURFACE TOOL, urgent care, hospital, or [facility]...) When possible be specific @ -No Did you speak to anyone other than the patient for history (EMS, parent, family, police, friend...)? What history was obtained from this source @ -No Did you review nursing and triage notes (agree or disagree)? Why? @ -I reviewed and agree with nursing and triage notes Were old charts reviewed (outside hosp., previous admission, EMS record, old EKG, old radiological studies, urgent care reports/EKG's, [facility] records)? Report findings @ -Yes. Prior charts. Differential Diagnosis (chest pain, altered mental status, abdominal pain women, abdominal pain men, vaginal bleeding, weakness, fever, dyspnea, syncope, headache, dizziness, GI bleed, back pain, seizure, CVA, palpatations, mental health)? @ -Acute psychosis, alcohol intoxication. Not all encompassing list. EKG interpreted by me (3pts min.). @ -As above X-rays interpreted by me (1pt min.). @ -None done CT interpreted by me (1pt min.). @ -None done U/S interpreted by me (1pt. min.). @ -None done What testing was considered but not performed or refused? (CT, X-rays, U/S, labs)? Why? @ -None What meds were considered but not given or refused? Why? @ -None Did you discuss the management of the patient with other professionals (professionals i.e. , PA, GRINDER OPERATOR SURFACE TOOL, lab, RT, psych nurse, social media assistant, van owner operator, teacher, house officer, case folder)? Give summary @ -Yes. EPS nurse contacted for psychiatric consult. Was smoking cessation discussed for >3mins.? @ -No Was critical care preformed (if so, how long)? @ -No Were there social determinants of health that impacted care today? How? (Homelessness, low income, unemployed, alcoholism, drug addiction, transportation, low edu. Level, literacy, decrease access to med. care, usp, rehab)? @ -Yes. Psychiatric history. Was there de-escalation of care discussed even if they declined (Discuss DNR or withdrawal of care, Hospice)? DNR status @ -No What co-morbidities impacted this encounter? (DM, HTN, Smoking, COPD, CAD, Cancer, CVA, ARF, Chemo, Hep., AIDS, mental health diagnosis, sleep apnea, morbid obesity)? @ -None Was patient admitted / discharged? Hospital course, mention meds given and route, prescriptions, significant lab abnormalities, going to OR and other pertinent info. @ -Based on the patient's presentation and physical exam, I do believe he requires psychiatric evaluation. Is currently laughing maniacally while we talk. His no acute complaints at this time. He was placed in green scrubs. Sitter and suicide precautions were ordered. Vital signs within acceptable limits. BAT is 0. UDS is pending. Patient is medically cleared for evaluation by psychiatry. Disposition is pending psychiatric evaluation. Patient was evaluated by inpatient psychiatry. He does meet inpatient criteria. Patient be admitted in stable condition to inpatient psychiatry. Patient did become aggressive toward staff and did not respond to verbal cues to calm down. He was administered IM Ativan and Haldol for agitation. He responded well to medications. Clinical certificate was completed by myself. Undiagnosed new problem with uncertain prognosis? @ -No Drug Therapy requiring intensive monitoring for toxicity (Heparin, Nitro, Insulin, Cardizem)? @ -No Were any procedures done? @ -No Diagnosis/symptom? @ -Encounter for psychiatric evaluation Acute, or Chronic, or Acute on Chronic? @ -Acute on chronic Uncomplicated (without systemic symptoms) or Complicated (systemic symptoms)? @ -default Side effects of treatment? @ -No Exacerbation, Progression, or Severe Exacerbation? @ -No Poses a threat to life or bodily function? How? (Chest pain, USA, ND, pneumonia, PE, COPD, DKA, ARF, appy, cholecystitis, CVA, Diverticulitis, Homicidal, Suicidal, threat to staff... and all critical care pts) @ -No - Lab Data Lab Results 07/17/22 07/17/22 Range/Units 17:13 21:33 Urine Opiates Screen Not Detected (NotDetected) Ur Oxycodone Screen Not Detected (NotDetected) Urine Methadone Screen Not Detected (NotDetected) Ur Propoxyphene Screen Not Detected (NotDetected) Ur Barbiturates Screen Not Detected (NotDetected) U Tricyclic Antidepress Not Detected (NotDetected) Ur Phencyclidine Scrn Not Detected (NotDetected) Ur Amphetamines Screen Not Detected (NotDetected) U Methamphetamines Scrn Not Detected (NotDetected) U Benzodiazepines Scrn Not Detected (NotDetected) Urine Cocaine Screen Not Detected (NotDetected) U Marijuana (THC) Screen Not Detected (NotDetected) Coronavirus (PCR) Not Detected (Not Detectd) Disposition Clinical Impression: Encounter for psychiatric assessment, Acute psychosis Disposition: ADMITTED IP TO THIS HOSP Condition: Stable
[2022-07-17] MEDS ORDERED: HALOPERIDOL LACTATE 5 MG/ML 1 ML VIAL IM STA (21:12)
[2022-07-17] MEDS ORDERED: LORazepam 2 MG/ML INJ IM STA (21:12)
[2022-07-17] MEDS ORDERED: HALOPERIDOL LACTATE 5 MG/ML 1 ML VIAL IM PRN (21:35)
[2022-07-17] MEDS ORDERED: MAGNESIUM HYDROXIDE 2,400 MG/10 ML CUP PO PRN (21:35)
[2022-07-17] MEDS ORDERED: LORazepam 2 MG/ML INJ IM PRN (21:41)
[2022-07-18] MEDS: haloperidoL 5 MG TAB PO PRN ×2 (05:02→09:23)
[2022-07-18] MEDS: LORazepam 1 MG TAB PO PRN ×3 (05:03→23:10)
[2022-07-18] MEDS: NICOTINE 21MG/24HR PATCH TRANSDERM SCH (09:24)
[2022-07-18] MEDS ORDERED: chlorproMAZINE 25 MG/ML 2 ML AMP IM ONE (09:56)
[2022-07-18 10:13] LABS: Basophils % (A) 0 %; Eosinophils # (A) 0.1 k/uL (0-0.7); Eosinophils % (A) 1 %; HCT 46.2 % (39.0-53.0); HGB 15.3 gm/dL (13.0-17.5); Lymphocytes # (A) 1.2 k/uL (1.0-4.8); Lymphocytes % (A) 18 %; MCH 29.6 pg (25.0-35.0); MCHC 33.1 g/dL (31.0-37.0); MCV 89.5 fL (80.0-100.0); Mean Platelet Volume 7.1; Monocytes # (A) 0.5 k/uL (0-1.0); Monocytes % (A) 7 %; Neutrophils # (A) 4.6 k/uL (1.3-7.7); Neutrophils % (A) 72 %; Platelet Count 266 k/uL (150-450); RBC 5.17 m/uL (4.30-5.90); RDW 11.8 % (11.5-15.5); WBC 6.4 k/uL (3.8-10.6)
--- NOTE | 2022-07-18 10:14 | P.EN ---
[employer] is not patients physician however was noticed this morning to be swearing, agitated and also innappropriate with other people on the unit. Patients and RN complaining of patient being sexually inappropriate and not directable. Patient did take PO haldol and ativan over 30 mins ago and not effective. Ordered additional prn, one time dose of Thorazine 75 mg IM NOW for agitation.
[2022-07-18 10:34] LABS: ALT 32 U/L (4-49); AST 28 U/L (17-59); African American GFR (CKD) >90 (>60 ml/min/1.73 sqM); Alkaline Phosphatase 63 U/L (38-126); Anion Gap 9 mmol/L; Blood Urea Nitrogen 18 mg/dL (9-20); Calcium 8.9 mg/dL (8.4-10.2); Carbon Dioxide 23 mmol/L (22-30); Chloride 105 mmol/L (98-107); Glucose 109 mg/dL (74-99); Non-African American GFR(CKD) >90 (>60 ml/min/1.73 sqM); Sodium 137 mmol/L (137-145); Total Protein 6.8 g/dL (6.3-8.2)
[2022-07-18 10:49] LABS: Potassium 4.6 mmol/L (3.5-5.1)
[2022-07-18] MEDS: risperiDONE 1 MG TAB PO SCH (21:14)
[2022-07-19 00:37] LABS: Chol/HDL Ratio 3.93 Ratio; LDL Cholesterol,Calculated 117.7 mg/dL (0.0-131.0)
[2022-07-19] MEDS ORDERED: chlorproMAZINE 25 MG TAB PO STA (03:41)
[2022-07-19] MEDS: LORazepam 1 MG TAB PO PRN ×2 (03:45→18:45)
[2022-07-19] MEDS: risperiDONE 1 MG TAB PO SCH (07:46)
[2022-07-19] MEDS: ACETAMINOPHEN TAB 325 MG TAB PO PRN ×2 (07:47→18:46)
[2022-07-19] MEDS: MAG HYDROX/AL HYDROX/SIMETH 30 ML CUP PO PRN (07:47)
[2022-07-19] MEDS: NICOTINE 21MG/24HR PATCH TRANSDERM SCH (07:47)
--- NOTE | 2022-07-19 16:32 | P.PN ---
Progress Note - Text Progress Note Date: 07/19/22 Interval History: Patient was seen wandering the hallways and was directable to speak with telegraphic typewriter operator. He is manic, disheveled, grandiose, attempts to intimidate and makes inappropriate comments. He reports he is trying not to eat too much so he can lose weight. When asked why he wants to lose weight he states he wants to look better and "crush the enemies". When asked who the enemies are, he points to this psychiatrist and laughs. He reports his mood is "good" however he appears irritable. He slept 4 hours last night and he claims he "slept a ton!". His insight and judgment remain poor. Nursing staff reports he is frequently at the nursing station making inappropriate comments to staff, particularly female staff and trying to touch female staff. He has been religiously and sexually preoccupied. He has required Ativan 2 mg by mouth 3 times yesterday and once so far today, and therefore he presents as a bit drowsy this morning. He has so far been compliant with his Risperidone 1 mg twice a day was initiated yesterday. No other side effects reported. We discussed his medications again today and he refuses to take Depakote, [place] or Haldol because "I don't like it". He is only agreeable to taking Risperdal at this time in addition to the Invega Sustenna injection. His legal status was confirmed with [facility] and he is currently on a court deferral. He denies any suicidal or homicidal ideations, intent or plan. Patient denies any auditory, visual hallucinations, however his thought process consists of grandiose and paranoid delusions. Appearance: Patient appears stated age, well-nourished, disheveled. Behavior: Patient is attempts to intimidate by making inappropriate comments. He has made several attempts to inappropriately touch female staff. Speech: Patient's speech is fluent and non-pressured, intimidating tone. Mood/Affect: Mood is elevated, affect is labile Suicidality/Homicidality: Patient denies having any suicidal or homicidal ideation intent or plan. Perceptions: Patient denies any visual hallucinations and denies any auditory hallucinations. Though content/process: There is evidence of paranoid/grandiose delusional thought content and thought process is somewhat disorganized. Memory and concentration: AOX3, grossly intact for the purposes of this session Judgment and insight: Very poor Assessment: Bipolar 1 Disorder, current episode manic, severe with psychotic features Plan: -Patient continues to meet criteria for inpatient psychiatric admission for symptom stabilization and safety. Patient is on a court deferral and a demand for hearing will need to be filed to the court. -Medications: Invega Sustenna 156 mg IM [id number] was given 06/30/22. Next injection is due 07/28/21, and he would benefit from a dose increase to 234 mg IM q4 weeks. Continue Risperdal 1 mg BID for mood stabilization. He continue to refuse mood stabilizers such as Depakote and [place] with are standard treatment for manic, because he doesn't "like it" and wants to stay on the Risperdal in addition to the Invega, however this will likely be insufficient for his manic symptoms. He will require court order for medication compliance. -When necessary Ativan and Haldol for agitation/aggression. -NRT - Not needed since patient denies smoking tobacco -SW on board for discharge planning. Encouraged the patient to participate in milieu. Currently awaiting court date.
[2022-07-19] MEDS: risperiDONE 2 MG TAB PO SCH (20:04)
[2022-07-20] MEDS: ACETAMINOPHEN TAB 325 MG TAB PO PRN ×2 (00:37→11:29)
[2022-07-20] MEDS: risperiDONE 2 MG TAB PO SCH (08:22)
[2022-07-20] MEDS: NICOTINE 21MG/24HR PATCH TRANSDERM SCH (08:22)
[2022-07-20] MEDS: haloperidoL 5 MG TAB PO PRN (10:47)
[2022-07-20] MEDS: LORazepam 1 MG TAB PO PRN ×2 (10:47→21:22)
[2022-07-20] MEDS: MAG HYDROX/AL HYDROX/SIMETH 30 ML CUP PO PRN (11:29)
--- NOTE | 2022-07-20 20:47 | P.PN ---
Progress Note - Text Progress Note Date: 07/20/22 Interval History: Patient was seen wandering the hallways and was directable to speak with lead technical writer. He continues to be manic, disheveled, and grandiose, with insomnia, slept only 4 hours again last night. He required Haldol 5 mg po x 1 and Ativan 2 mg po x 1 this morning after instigating an altercation with a female peer unprovoked. Nursing staff reports he continues to touch female staff inappropriately and making sexually inappropriate comments. His insight and judgment continue to be poor. We discussed his medications again today and he refuses to take Depakote because "I don't like it" and states "I won't take [place]!" He is only agreeable to taking the Risperdal (in addition to his Invega Sustenna injection), however this combination is ineffective in treating his manic symptoms since continues to be sexually preoccupied and not sleeping well at night, and this Risperdal appears to be contributing to his hypotension and tachycardia (BP this morning is 99/62 and HR 120). He denies any suicidal or homicidal ideation, intent or plan. Patient denies any auditory, visual hallucinations, however his thought process consists of grandiose and paranoid delusions. Appearance: Patient appears stated age, well-nourished, disheveled. Behavior: Patient continue to be sexually preoccupied and behave inappropriately towards female peers and staff. Speech: Patient's speech is fluent and non-pressured, intimidating tone. Mood/Affect: Mood is elevated, affect is labile Suicidality/Homicidality: Patient denies having any suicidal or homicidal ideation intent or plan. Perceptions: Patient denies any visual hallucinations and denies any auditory hallucinations. Though content/process: There is evidence of paranoid/grandiose delusional thought content and thought process is somewhat disorganized. Memory and concentration: AOX3, grossly intact for the purposes of this session Judgment and insight: Very poor Assessment: Bipolar 1 Disorder, current episode manic, severe with psychotic features Noncompliance with treatment Plan: -Patient continues to meet criteria for inpatient psychiatric admission for symptom stabilization and safety. Patient is on a court deferral and a demand for hearing will need to be filed to the court. -Medications: Invega Sustenna 156 mg IM [id number] was given 06/30/22. Next injection is due 07/28/21, and he would benefit from a dose increase to 234 mg IM q4 weeks. Decrease Risperdal from 2 mg BID back to 1 mg BID for mood stabilization due to hypotension/tachycardia. He continue to refuse mood stabilizers such as Depakote and [place] which are standard treatments for ayo, because he doesn't "like it" and wants to stay on the Risperdal in addition to the Invega, however this will likely be insufficient for his manic symptoms. He will require court order for medication compliance with mood stabilizers such as Depakote or [place] for ayo. -When necessary Ativan and Haldol for agitation/aggression. -NRT - Not needed since patient denies smoking tobacco -SW on board for discharge planning. Encouraged the patient to participate in milieu. Currently awaiting court date.
[2022-07-20] MEDS: risperiDONE 1 MG TAB PO SCH (21:19)
--- NOTE | 2022-07-20 21:19 | P.HP ---
Psychiatric H&P - . H&P Date: 07/18/22 History & Physical: IDENTIFYING DATA: Patient is a 52 year old male well known to this unit with history of bipolar I disorder who presents with ayo. HPI: Patient presented to the hospital on 07/17/2022 brought in by [place] police. Per petition, patient was "praying when he is in the roadway, brain to passing train. Entering people's homes without permission asked for relatives. Per clinical certificate completed by ER physician patient presented with acute psychosis and suicidal ideation with manic laughter, flight of ideas. Per [facility], patient has been exhibiting psychotic, manic and bizarre symptoms such as laughing hysterically when asked any questions. He called the provider a "ghost" and thought she was someone named "Dr. Dwyer "and insisted she took half of an egg carton filled with cereal that he poured homemade peanut butter milk on. The next day he insisted the provider was his cousin Manda and was talking about different "dimensions". He received a letter from [facility] in [place] regarding a no tresspass order and he plans to go there at noon to see someone named "Nuvia". He was advised against going there and reported he is not concerned if he were to go to shelter. Police had been called on him knocking on "Mikie and Ruchi's" door a few miles down the road. I evaluated patient on 07/18/2022 on the unit and on my assessment he appeared drowsy and had difficulty participating in assessment in meaningful dialogue. Earlier in the day he was observed to be swearing, agitated, and inappropriate with other people on the unit. He has required Haldol 5 mg po x 2, Ativan 2 mg po x 2, and Thorazine 75 mg IM x 1 for agitation so far today. He denies SI/HI/AVH. He received his last Invega Sustenna 156 mg IM on 06/30/22 at [facility]. This is his third admission to [facility] so far this year and he is currently on a deferral. PAST PSYCHIATRIC HISTORY: Unable to obtain history due to drowsiness. The following was taken from chart. Past diagnosis: Bipolar I disorder Past psychiatric medications: Depakote, Abilify Maintena, Cogentin, Thorazine, Prolixin, Invega Sustenna. History of court ordered treatment. Prrevious psychiatric hospitalizations: Multiple, [facility] in 2019, 2016 and 2014, twice in 2021. This is his third admission in the past three months. Psychiatric outpatient follow-up: [facility] History of suicide attempts in the past: Not known at this time due to sedation PMH: Additional Past Medical History / Comment(s): Hernia History of Any Multi-Drug Resistant Organisms: None Reported Past Surgical History: Hernia Repair Past Anesthesia/Blood Transfusion Reactions: No Reported Reaction Past Psychological History: Bipolar Smoking Status: Never smoker Past Alcohol Use History: None Reported Past Drug Use History: None Reported ALLERGIES: as per EMR CHEMICAL DEPENDENCY HISTORY: Unable to obtain due to drowsiness, however he does has a history of alcohol use disorder. FAMILY PSYCHIATRIC/SUBSTANCE USE HISTORY: Mother- mood disorder, Brother with bipolar disorder SOCIAL HISTORY: Per history - , has 4 children, lives in [place] alone, reports he is estranged from his . MENTAL STATUS EXAM: General Appearance: Patient appears to be stated age, disheveled, dressed in a women's blazer over his mismatched attire, unshaven, poor hygiene. Behavior: Patient is seated without any agitated behavior, is drowsy, however he has been agitated and inappropriate with staff/peers multiple times today and required IMs. Speech: Patient's speech is slurred. Mood/Affect: Patient reports their mood is "great", affect is incongruent and constricted. Suicidality/Homicidality: Patient denies having any homicidal ideation intent or plan. Denies any suicidal ideation, intent or plan. Perceptions: Patient denies any visual hallucinations and denies any auditory hallucinations. Though content/process: There is evidence of gradiose delusional thought content and thought process is disorganized. Memory and concentration: AOX2, sedated Judgment and insight: poor STRENGTHS/WEAKNESSES: Strength is that patient is he can make his needs known. Weakness is that patient has poor judgment and is impulsive and noncompliant with treatment. INTELLECT: Average IMPRESSIONS: Bipolar I disorder, current episode mixed, severe with psychotic features Alcohol use disorder, unspecified Noncompliance with treatment PLAN: -Patient is admitted on petition/cert status to [facility] for stabilization of psychiatric symptoms and safety and is on a DEFERRAL status. A demand for hearing will be filed with the court. -Medications: Will start patient on Risperdal 1 mg BID for additional mood stabilization because this is the only thing he will agree to at the moment. He received his last Invega Sustenna 156 mg IM injection on 06/30/22. Will co nsider increasing dose to 234 mg IM for next injection. He is refusing to start Depakote or [place] currently for mood stabilization. Will attempt discussing this again tomorrow. -Ativan and Haldol PRN for agitation/aggression -Patient was informed of the risks, benefits and side effects of the medication and patient verbally consented to taking the medications. -Internal Medicine consult to perform medical evaluation and physical. -NRT - nicotine patch -SW on board for discharge planning. Encourage patient to participate in groups to work on coping skills. Will await court date. He will need court order for medication compliance with mood stabilizer. This is his third admission to this unit in Allergies Allergy/AdvReac Type Severity Reaction Status Date / Time No Known Allergies Allergy Verified 06/30/22 07:57 Vital Signs Temp 97.5 F L 07/18/22 06:45 Pulse 104 H 07/18/22 06:45 Resp 18 07/18/22 06:45 BP 106/57 07/18/22 06:45 Pulse Ox 97 07/18/22 06:45 FiO2 Intake & Output 07/17/22 07/18/22 07/18/22 18:59 06:59 18:59 Weight 90.718 kg Laboratory Last Values WBC 6.4 k/uL (3.8-10.6) 07/18/22 09:49 RBC 5.17 m/uL (4.30-5.90) 07/18/22 09:49 Hgb 15.3 gm/dL (13.0-17.5) 07/18/22 09:49 Hct 46.2 % (39.0-53.0) 07/18/22 09:49 MCV 89.5 fL (80.0-100.0) 07/18/22 09:49 MCH 29.6 pg (25.0-35.0) 07/18/22 09:49 MCHC 33.1 g/dL (31.0-37.0) 07/18/22 09:49 RDW 11.8 % (11.5-15.5) 07/18/22 09:49 Plt Count 266 k/uL (150-450) 07/18/22 09:49 MPV 7.1 07/18/22 09:49 Neutrophils % 72 % 07/18/22 09:49 Lymphocytes % 18 % 07/18/22 09:49 Monocytes % 7 % 07/18/22 09:49 Eosinophils % 1 % 07/18/22 09:49 Basophils % 0 % 07/18/22 09:49 Neutrophils # 4.6 k/uL (1.3-7.7) 07/18/22 09:49 Lymphocytes # 1.2 k/uL (1.0-4.8) 07/18/22 09:49 Monocytes # 0.5 k/uL (0-1.0) 07/18/22 09:49 Eosinophils # 0.1 k/uL (0-0.7) 07/18/22 09:49 Basophils # 0.0 k/uL (0-0.2) 07/18/22 09:49 Sodium 137 mmol/L (137-145) 07/18/22 09:49 Potassium 4.6 mmol/L (3.5-5.1) 07/18/22 09:49 Chloride 105 mmol/L (98-107) 07/18/22 09:49 Carbon Dioxide 23 mmol/L (22-30) 07/18/22 09:49 Anion Gap 9 mmol/L 07/18/22 09:49 BUN 18 mg/dL (9-20) 07/18/22 09:49 Creatinine 0.73 mg/dL (0.66-1.25) 07/18/22 09:49 Est GFR (CKD-EPI)AfAm >90 (>60 ml/min/1.73 sqM) 07/18/22 09:49 Est GFR (CKD-EPI)NonAf >90 (>60 ml/min/1.73 sqM) 07/18/22 09:49 Glucose 109 mg/dL (74-99) H 07/18/22 09:49 Calcium 8.9 mg/dL (8.4-10.2) 07/18/22 09:49 Total Bilirubin 1.0 mg/dL (0.2-1.3) 07/18/22 09:49 AST 28 U/L (17-59) 07/18/22 09:49 ALT 32 U/L (4-49) 07/18/22 09:49 Alkaline Phosphatase 63 U/L (38-126) 07/18/22 09:49 Total Protein 6.8 g/dL (6.3-8.2) 07/18/22 09:49 Albumin 4.0 g/dL (3.5-5.0) 07/18/22 09:49 TSH 1.220 mIU/L (0.465-4.680) 07/18/22 09:49 Urine Opiates Screen Not Detected (NotDetected) 07/17/22 17:13 Ur Oxycodone Screen Not Detected (NotDetected) 07/17/22 17:13 Urine Methadone Screen Not Detected (NotDetected) 07/17/22 17:13 Ur Propoxyphene Screen Not Detected (NotDetected) 07/17/22 17:13 Ur Barbiturates Screen Not Detected (NotDetected) 07/17/22 17:13 U Tricyclic Antidepress Not Detected (NotDetected) 07/17/22 17:13 Ur Phencyclidine Scrn Not Detected (NotDetected) 07/17/22 17:13 Ur Amphetamines Screen Not Detected (NotDetected) 07/17/22 17:13 U Methamphetamines Scrn Not Detected (NotDetected) 07/17/22 17:13 U Benzodiazepines Scrn Not Detected (NotDetected) 07/17/22 17:13 Urine Cocaine Screen Not Detected (NotDetected) 07/17/22 17:13 U Marijuana (THC) Screen Not Detected (NotDetected) 07/17/22 17:13 Coronavirus (PCR) Not Detected (Not Detectd) 07/17/22 21:33 07/18/22 15:02 07/18/22 15:13 07/18/22 15:20 07/20/22 20:47
[2022-07-21] MEDS: ACETAMINOPHEN TAB 325 MG TAB PO PRN ×5 (01:44→16:40)
[2022-07-21] MEDS: NICOTINE 21MG/24HR PATCH TRANSDERM SCH (08:49)
[2022-07-21] MEDS: risperiDONE 1 MG TAB PO SCH ×2 (08:49→20:06)
[2022-07-21] MEDS ORDERED: chlorproMAZINE 25 MG/ML 2 ML AMP IM ONE (09:33)
[2022-07-21] MEDS ORDERED: LORazepam 2 MG/ML INJ IM SCH (09:45)
[2022-07-21] MEDS: LORazepam 2 MG/ML INJ IM PRN (09:57)
[2022-07-21] MEDS: MAG HYDROX/AL HYDROX/SIMETH 30 ML CUP PO PRN ×2 (14:29→20:07)
--- NOTE | 2022-07-21 15:01 | P.PN ---
Progress Note - Text Progress Note Date: 07/21/22 Interval History: Patient was seen wandering the hallways and was drowsy due to requiring Thorazine 75 mg IM x 1 and Ativan 2 mg IM x 1 due to unwanted sexually inappropriate behaviors. Per staff he grabbed the buttox of a female staff this morning and also approached a a female peer and began caressing her shoulders without her consent. He continues to be intrusive and sexually preoccupied despite multiple attempts by staff to educate and redirect him. He continues to be manic, disheveled, and grandiose, with insomnia, slept only 5 hours o fragmented sleep last night despite getting Ativan 2 mg po x 1 last night in addition to his medications. His insight and judgment continue to be poor. He continues to refuse Depakote and [place] to be ordered for mood stabilization, and becomes increasingly upset when discussing his medications. Appearance: Patient appears stated age, well-nourished, disheveled, dressed in mismatched attire, poor hygiene. Behavior: Patient continue to be sexually preoccupied and behave inappropriately towards female peers and staff. Speech: Patient's speech is fluent and non-pressured, slurred. Mood/Affect: Mood is elevated, affect is labile Suicidality/Homicidality: Patient denies having any suicidal or homicidal ideation intent or plan. Perceptions: Patient denies any visual hallucinations and denies any auditory hallucinations. Though content/process: There is evidence of paranoid/grandiose delusional thought content and thought process is somewhat disorganized. Memory and concentration: AOX3, grossly intact for the purposes of this session Judgment and insight: Very poor Assessment: Bipolar 1 Disorder, current episode manic, severe with psychotic features Noncompliance with treatment Plan: -Patient continues to meet criteria for inpatient psychiatric admission for symptom stabilization and safety. Patient is on a court deferral and a demand for hearing will need to be filed to the court. -Medications: Invega Sustenna 156 mg IM [id number] was given 06/30/22. Next injection is due 07/28/21, and he would benefit from a dose increase to 234 mg IM q4 weeks. Continue Risperdal 1 mg BID for mood stabilization due to hypotension/tachycardia. He continue to refuse mood stabilizers such as Depakote and [place] which are standard treatments for ayo, because he doesn't "like it" and wants to stay on the Risperdal in addition to the Invega, however is insufficient for his manic symptoms. He will require court order for medication compliance with mood stabilizers such as Depakote or [place] for ayo in order for these to be ordered for him because he becomes hostile when offered these. -When necessary Ativan and Haldol for agitation/aggression. -NRT - Not needed since patient denies smoking tobacco -SW on board for discharge planning. Encouraged the patient to participate in milieu. Currently awaiting court date.
[2022-07-21] MEDS ORDERED: chlorproMAZINE 25 MG/ML 2 ML AMP IM PRN (16:09)
[2022-07-21] MEDS: chlorproMAZINE 25 MG TAB PO PRN (16:40)
[2022-07-21] MEDS: LORazepam 1 MG TAB PO PRN (20:06)
[2022-07-22] MEDS: ACETAMINOPHEN TAB 325 MG TAB PO PRN ×2 (01:48→12:00)
[2022-07-22] MEDS: LORazepam 1 MG TAB PO PRN ×3 (01:48→20:37)
[2022-07-22] MEDS: chlorproMAZINE 25 MG TAB PO PRN ×3 (02:07→22:01)
[2022-07-22] MEDS: risperiDONE 1 MG TAB PO SCH ×2 (09:21→20:36)
[2022-07-22] MEDS: NICOTINE 21MG/24HR PATCH TRANSDERM SCH (09:23)
--- NOTE | 2022-07-22 11:15 | P.PN ---
Progress Note - Text Progress Note Date: 07/22/22 Interval History: Patient was seen wandering the hallways and was directable and agreeable to speak with life insurance underwriter in the office. Currently, the patient is not reporting any suicidal ideation. However he continues to endorse some bizarre religiously preoccupied beliefs. He reports he has some homicidal ideations towards "a demon who is not quite the devil." When I asked this individual is present on the unit, the patient denies this. He reports that he is in "some level of hell." The patient is not endorsing any auditory or visual hallucinations. When informed that the patient is to keep his hands to himself, the patient acknowledges understanding and is apologetic for his actions yesterday. He is agreeable to taking Depakote this evening if this provider is asking him to. He has been noted to sleep throughout the night. Mental Status Exam: General Appearance: Patient appears to be stated age is alert, directable, and cooperative. Behavior: Patient is calmly seated without any agitated behavior. Speech: Patient's speech is fluent and nonpressured. Mood/Affect: Mood is "doing okay." Affect is slightly expansive. Suicidality/Homicidality: Patient denies having any suicidal ideation. He does endorse homicidal ideation towards "a devil." Perceptions: Patient denies any visual hallucinations and denies any auditory hallucinations Though content/process: The patient is religiously preoccupied. Delusional. Memory and concentration: AOX3, grossly intact for the purposes of this session Judgment and insight: Improving mildly Vital Signs Temp 97.6 F 07/21/22 01:45 Pulse 111 H 07/21/22 01:45 Resp 16 07/21/22 01:45 BP 111/65 07/21/22 01:45 Pulse Ox 98 07/21/22 01:45 FiO2 Laboratory Results WBC 6.4 k/uL (3.8-10.6) 07/18/22 09:49 RBC 5.17 m/uL (4.30-5.90) 07/18/22 09:49 Hgb 15.3 gm/dL (13.0-17.5) 07/18/22 09:49 Hct 46.2 % (39.0-53.0) 07/18/22 09:49 MCV 89.5 fL (80.0-100.0) 07/18/22 09:49 MCH 29.6 pg (25.0-35.0) 07/18/22 09:49 MCHC 33.1 g/dL (31.0-37.0) 07/18/22 09:49 RDW 11.8 % (11.5-15.5) 07/18/22 09:49 Plt Count 266 k/uL (150-450) 07/18/22 09:49 MPV 7.1 07/18/22 09:49 Neutrophils % 72 % 07/18/22 09:49 Lymphocytes % 18 % 07/18/22 09:49 Monocytes % 7 % 07/18/22 09:49 Eosinophils % 1 % 07/18/22 09:49 Basophils % 0 % 07/18/22 09:49 Neutrophils # 4.6 k/uL (1.3-7.7) 07/18/22 09:49 Lymphocytes # 1.2 k/uL (1.0-4.8) 07/18/22 09:49 Monocytes # 0.5 k/uL (0-1.0) 07/18/22 09:49 Eosinophils # 0.1 k/uL (0-0.7) 07/18/22 09:49 Basophils # 0.0 k/uL (0-0.2) 07/18/22 09:49 Sodium 137 mmol/L (137-145) 07/18/22 09:49 Potassium 4.6 mmol/L (3.5-5.1) 07/18/22 09:49 Chloride 105 mmol/L (98-107) 07/18/22 09:49 Carbon Dioxide 23 mmol/L (22-30) 07/18/22 09:49 Anion Gap 9 mmol/L 07/18/22 09:49 BUN 18 mg/dL (9-20) 07/18/22 09:49 Creatinine 0.73 mg/dL (0.66-1.25) 07/18/22 09:49 Est GFR (CKD-EPI)AfAm >90 (>60 ml/min/1.73 sqM) 07/18/22 09:49 Est GFR (CKD-EPI)NonAf >90 (>60 ml/min/1.73 sqM) 07/18/22 09:49 Glucose 109 mg/dL (74-99) H 07/18/22 09:[address] Glu mg/dL 118 07/18/22 09:49 Hemoglobin A1c 5.8 % (0.0-6.0) 07/18/22 09:49 Calcium 8.9 mg/dL (8.4-10.2) 07/18/22 09:49 Total Bilirubin 1.0 mg/dL (0.2-1.3) 07/18/22 09:49 AST 28 U/L (17-59) 07/18/22 09:49 ALT 32 U/L (4-49) 07/18/22 09:49 Alkaline Phosphatase 63 U/L (38-126) 07/18/22 09:49 Total Protein 6.8 g/dL (6.3-8.2) 07/18/22 09:49 Albumin 4.0 g/dL (3.5-5.0) 07/18/22 09:49 Triglycerides 101.00 mg/dL (0.00-149.00) 07/18/22 09:49 Cholesterol 185.00 mg/dL (0.00-200.00) 07/18/22 09:49 LDL Cholesterol, Calc 117.7 mg/dL (0.0-131.0) 07/18/22 09:49 VLDL Cholesterol, Calc 20.20 mg/dL (5.00-40.00) 07/18/22 09:49 HDL Cholesterol 47.10 mg/dL (40.00-60.00) 07/18/22 09:49 Cholesterol/HDL Ratio 3.93 Ratio 07/18/22 09:49 TSH 1.220 mIU/L (0.465-4.680) 07/18/22 09:49 Urine Opiates Screen Not Detected (NotDetected) 07/17/22 17:13 Ur Oxycodone Screen Not Detected (NotDetected) 07/17/22 17:13 Urine Methadone Screen Not Detected (NotDetected) 07/17/22 17:13 Ur Propoxyphene Screen Not Detected (NotDetected) 07/17/22 17:13 Ur Barbiturates Screen Not Detected (NotDetected) 07/17/22 17:13 U Tricyclic Antidepress Not Detected (NotDetected) 07/17/22 17:13 Ur Phencyclidine Scrn Not Detected (NotDetected) 07/17/22 17:13 Ur Amphetamines Screen Not Detected (NotDetected) 07/17/22 17:13 U Methamphetamines Scrn Not Detected (NotDetected) 07/17/22 17:13 U Benzodiazepines Scrn Not Detected (NotDetected) 07/17/22 17:13 Urine Cocaine Screen Not Detected (NotDetected) 07/17/22 17:13 U Marijuana (THC) Screen Not Detected (NotDetected) 07/17/22 17:13 Coronavirus (PCR) Not Detected (Not Detectd) 07/17/22 21:33 Assessment Bipolar 1 Disorder, current episode manic, severe with psychotic features Noncompliance with treatment Plan: -Patient continues to meet criteria for inpatient psychiatric admission for symptom stabilization and safety. The patient is scheduled for court hearing tomorrow. -Medications: The patient received Invega Sustenna 156 mg IM on 06/30/2022. Next dose is due on 07/28/2021. Likely will administered invega sustenna 234 mg due to uncontrolled psychotic symptoms. Patient is in agreement to start Depakote 1000 mg by mouth at bedtime tonight. EKG ordered. -When necessary Ativan and Haldol for agitation/aggression. -SW on board for discharge planning. Encouraged the patient to participate in milieu.
[2022-07-22] MEDS ORDERED: DIVALPROEX ER 500 MG TAB.ER.24H PO SCH (21:00)
[2022-07-23] MEDS: ACETAMINOPHEN TAB 325 MG TAB PO PRN ×2 (00:51→19:15)
[2022-07-23] MEDS: chlorproMAZINE 25 MG TAB PO PRN (08:03)
[2022-07-23] MEDS: MAG HYDROX/AL HYDROX/SIMETH 30 ML CUP PO PRN ×2 (08:03→19:17)
[2022-07-23] MEDS: risperiDONE 1 MG TAB PO SCH ×2 (08:03→21:12)
[2022-07-23] MEDS: NICOTINE 21MG/24HR PATCH TRANSDERM SCH (08:04)
--- NOTE | 2022-07-23 11:41 | P.PN ---
Progress Note - Text Progress Note Date: 07/23/22 Interval History: Patient was seen attending group and was directable and agreeable to speak with clinical writer in the office. Currently, the patient is not endorsing any issues or concerns his provider. He however continues to be religiously preoccupied and believes that his neighbor is a demon or devil. He states that he wants to fight this neighbor. He was also noted by staff to be sexually inappropriate and agitated last night. He was informed that he has to keep his hands to himself however does not acknowledge the gravity this entails including possible charges. His behavior required administration of IM Thorazine and Ativan last night. Also prior to bedtime, the patient was noted to be restless and unable to sleep. The patient however reports that he was able to sleep throughout the night. He is however denying any suicidal or homicidal ideation, intention, and/or plan. He is not reporting any auditory or visual hallucinations. He has been adherent with his medication including his Depakote and is not endorsing any significant side effects. He waived and stipulated court. Mental Status Exam: General Appearance: Patient appears to be stated age is somewhat somnolent, directable, and cooperative. Behavior: Patient is calmly seated without any agitated behavior. Speech: Patient's speech is fluent and nonpressured. Mood/Affect: Mood is "doing okay." Affect is somnolent yet expansive. Suicidality/Homicidality: Patient denies having any suicidal ideation. He does endorse homicidal ideation towards "the demon." Perceptions: Patient denies any visual hallucinations and denies any auditory hallucinations Though content/process: The patient is religiously preoccupied. Delusional. Memory and concentration: AOX3, grossly intact for the purposes of this session Judgment and insight: Poor Vital Signs Temp 97.4 F L 07/23/22 02:00 Pulse 109 H 07/23/22 02:00 Resp 16 07/23/22 02:00 BP 111/73 07/23/22 02:00 Pulse Ox 98 07/21/22 01:45 FiO2 Assessment Bipolar 1 Disorder, current episode manic, severe with psychotic features Noncompliance with treatment Plan: -Patient continues to meet criteria for inpatient psychiatric admission for symptom stabilization and safety. The patient is scheduled for court hearing tomorrow. -Medications: The patient received Invega Sustenna 156 mg IM on 06/30/2022. Next dose is due on 07/28/2021. Likely will administered invega sustenna 234 mg due to uncontrolled psychotic symptoms. Increase Risperdal to 2 mg by mouth twice a day with a hope to decrease the frequency as to which he received PRN medications. Increase Depakote to 1500 mg by mouth at bedtime tonight. EKG ordered. -When necessary Ativan and Thorazine for agitation/aggression. -SW on board for discharge planning. Encouraged the patient to participate in milieu.
[2022-07-23] MEDS: LORazepam 1 MG TAB PO PRN (14:04)
[2022-07-23] MEDS: DIVALPROEX ER 500 MG TAB.ER.24H PO SCH (21:12)
[2022-07-24] MEDS: chlorproMAZINE 25 MG TAB PO PRN ×3 (01:50→21:01)
[2022-07-24] MEDS: ACETAMINOPHEN TAB 325 MG TAB PO PRN ×2 (02:49→20:21)
[2022-07-24] MEDS: risperiDONE 1 MG TAB PO SCH ×2 (09:00→20:10)
[2022-07-24] MEDS: NICOTINE 21MG/24HR PATCH TRANSDERM SCH (09:01)
[2022-07-24] MEDS ORDERED: chlorproMAZINE 25 MG/ML 2 ML AMP IM PRN (11:34)
--- NOTE | 2022-07-24 15:00 | P.PN ---
Progress Note - Text Progress Note Date: 07/24/22 Interval History: Patient was seen attending group and was directable and agreeable to speak with freelance copywriter in the office. The patient continues to present as overtly bizarre. He is laughing often to himself and appears to be responding to internal stimuli. Furthermore, the patient continues to endorse auditory hallucinations from a devil or demon. He was continues to be religiously preoccupied. He denies any suicidal ideation. He reports homicidal ideation towards this devil. He reports no issues regarding his sleep or his appetite. He has been adherent with his medication is not endorsing any significant side effects. The patient continues to receive PRN medications for agitation. He was noted to sleep 4.5 hours last night. Mental Status Exam: General Appearance: Patient appears to be stated age is somewhat somnolent, directable, and cooperative. Behavior: Patient is calmly seated without any agitated behavior. Patient is often laughing to himself. Speech: Patient's speech is fluent and nonpressured. Mood/Affect: Mood is "doing okay." Affect is somnolent yet expansive. Suicidality/Homicidality: Patient denies having any suicidal ideation. He does endorse homicidal ideation towards "the demon." Perceptions: Patient denies any visual hallucinations and denies any auditory hallucinations Though content/process: The patient is religiously preoccupied. Delusional. Memory and concentration: AOX3, grossly intact for the purposes of this session Judgment and insight: Poor Vital Signs Temp 96.9 F L 07/24/22 01:52 Pulse 104 H 07/24/22 01:52 Resp 14 07/24/22 01:52 BP 105/69 07/24/22 01:52 Pulse Ox 98 07/21/22 01:45 FiO2 Assessment Bipolar 1 Disorder, current episode manic, severe with psychotic features Noncompliance with treatment Plan: -Patient continues to meet criteria for inpatient psychiatric admission for symptom stabilization and safety. The patient is scheduled for court hearing tomorrow. -Medications: The patient received Invega Sustenna 156 mg IM on 06/30/2022. Next dose is due on 07/28/2021. We will administer Invega Sustenna 234 mg IM over this weekend. Increase Risperdal to 3 mg by mouth twice a day with a hope to decrease the frequency as to which he received PRN medications. Continue Depakote 1500 mg by mouth at bedtime tonight. -When necessary Ativan and Thorazine for agitation/aggression. -SW on board for discharge planning. Encouraged the patient to participate in milieu.
[2022-07-24] MEDS: DIVALPROEX ER 500 MG TAB.ER.24H PO SCH (20:09)
[2022-07-24] MEDS: LORazepam 1 MG TAB PO PRN (20:21)
[2022-07-25] MEDS: ACETAMINOPHEN TAB 325 MG TAB PO PRN ×3 (06:50→21:53)
[2022-07-25] MEDS: ARTIFICIAL TEARS-HYPROMELLOSE DROPS 15 ML BTL BOTH EYES PRN ×2 (06:51→17:00)
[2022-07-25] MEDS: risperiDONE 1 MG TAB PO SCH ×2 (09:09→21:21)
[2022-07-25] MEDS: NICOTINE 21MG/24HR PATCH TRANSDERM SCH (09:10)
[2022-07-25] MEDS ORDERED: BENZTROPINE MESYLATE 1 MG TAB PO STA (09:53)
--- NOTE | 2022-07-25 11:59 | P.PN ---
Progress Note - Text Progress Note Date: 07/25/22 Interval History: Patient was seen attending group and was directable and agreeable to speak with quality analyst/technical writer in the office. Currently, the patient is not reporting any suicidal ideation, intention, and/or plan. He continues to report homicidal ideation towards "fu-kface." He identifies this individual as his neighbor who is also the devil. He is otherwise not reporting any auditory or visual hallucinations to this provider. He is less religiously preoccupied. He has been adherent with his medication is not endorsing any significant side effects aside from mild stiffness. He is requesting Cogentin today. He is in agreement to continue with the treatment regimen with plans to transition him to Invega Sustenna over the weekend. Mental Status Exam: General Appearance: Patient appears to be stated age is less somnolent, however directable, and cooperative. Behavior: Patient is calmly seated without any agitated behavior. Patient is often laughing to himself. Speech: Patient's speech is fluent and nonpressured. Mood/Affect: Mood is "feeling good doc." Affect is less somnolent. Suicidality/Homicidality: Patient denies having any suicidal ideation. He does endorse homicidal ideation towards "fu-kface." Perceptions: Patient denies any visual hallucinations and denies any auditory hallucinations Though content/process: [place]. Fixated on "fu-kface." Memory and concentration: AOX3, grossly intact for the purposes of this session Judgment and insight: Poor Vital Signs Temp 97.5 F L 07/25/22 07:01 Pulse 108 H 07/25/22 07:01 Resp 16 07/25/22 07:01 BP 123/75 07/25/22 07:01 Pulse Ox 98 07/21/22 01:45 FiO2 Assessment Bipolar 1 Disorder, current episode manic, severe with psychotic features Noncompliance with treatment Plan: -Patient continues to meet criteria for inpatient psychiatric admission for symptom stabilization and safety. The patient is court ordered for treatment. -Anticipate discharge on Thursday. -Medications: We will continue Risperdal until Thursday. We will administer Invega Sustenna 234 mg IM on Thursday07/27/2022. Start benztropine 1 mg by mouth twice a day for EPS Continue Depakote 1500 mg by mouth at bedtime - CMP and Depakote level ordered for Thursday. -When necessary Ativan and Thorazine for agitation/aggression. -SW on board for discharge planning. Encouraged the patient to participate in milieu.
[2022-07-25] MEDS: MAG HYDROX/AL HYDROX/SIMETH 30 ML CUP PO PRN (14:06)
--- NOTE | 2022-07-25 17:49 | P.MDCNMH ---
<Donavon Camacho - Last Filed: 07/25/22 17:18> History of Present Illness H&P Date: 07/25/22 History of Presenting Illness: Patient is a 52-year-old male with a past medical history of bipolar disorder. He is currently admitted to inpatient psychiatric unit for treatment of acute ayo. We have been consulted for medical H&P. Patient seen and fully evaluated on mental health unit. Patient cooperative with assessment the patient leaving inappropriately throughout assessment. Patient laughing hysterically to the point he had tears coming out of his eyes throughout the ent andriy assessment and with each and every question. Patient did answer minimal questions during assessment although continued laughing hysterically. Patient denied nicotine use, denied alcohol use, and denied ever any drug use. Patient currently denies having any pain, complaints, or needs. Admission labs reviewed. CBC and CMP were unremarkable. Urine drug screen was negative and Covid PCR was also negative. TSH normal findings at 1.220. Lipid profile unremarkable. Hemoglobin A1c 5.8%. Review of systems: Pertinent positives and negatives as discussed in HPI, a complete review of systems was performed and all other systems are negative. Physical exam: Vital signs reviewed and stable. General: Nontoxic, no distress and appears stated age. Derm: Skin warm and dry, normal coloration for ethnicity. Head: Atraumatic, normocephalic and symmetric. Eyes: EOMs intact, no lid lag, and anicteric sclera Mouth: no lip lesions, mucus membranes moist Cardiovascular: regular rate and rhythm with normal S1S2, no murmur Lungs: Respirations even, regular, and unlabored on room air. Lungs CTA bilaterally. . Abdominal: soft, nontender to palpation, no guarding, no appreciable organomegaly Ext: ROM intact. No gross muscle atrophy, no edema, no contractures Neuro/psych: Patient ambulatory with a steady gait had no noticeable neurological deficits. Patient laughing hysterically throughout entire examination to the point he had tears coming out of his eyes. Assessment and Plan of Care: Bipolar disorder with acute ayo -Management per primary admitting psychiatric team. Thank you for allowing us to participate in the care of this pleasant patient. Do not hesitate to contact us with questions. Someone can be reached from the [facility] hospitalist group all hours of the day at [phone] or via [employer]. Past Medical History Additional Past Medical History / Comment(s): Hernia History of Any Multi-Drug Resistant Organisms: None Reported Past Surgical History: Hernia Repair Past Anesthesia/Blood Transfusion Reactions: No Reported Reaction Past Psychological History: Bipolar Smoking Status: Never smoker Past Alcohol Use History: None Reported Additional Past Alcohol Use History / Comment(s): Patient states he is a lifelong nonsmoker. He denies any medical marijuana, marijuana, street drug use or alcohol use. Past Drug Use History: None Reported - Past Family History Father Additional Family Medical History / Comment(s): Father is 80 years old with no major medical problems. Mother Additional Family Medical History / Comment(s): Mother is 81 years old with no major medical problems. Brother(s) Additional Family Medical History / Comment(s): He has 4 brothers and 2 sisters with no medical problems. Patient has 3 daughters and 1 son that are healthy. Medications and Allergies Home Medications Medication Instructions Recorded Confirmed Type Ascorbic Acid [Vitamin C] 1,000 mg PO DAILY 06/30/22 07/25/22 History flaxseed oiL [[place]-3 Flaxseed Oil] 1,000 mg PO DAILY 06/30/22 07/25/22 History Benztropine Mesylate 0.5 mg PO BID 1 Days #15 tab 07/03/22 07/25/22 Rx Cyanocobalamin [Vitamin B-12] 1,000 mcg PO DAILY 30 Days tab 07/03/22 07/25/22 Rx Multivitamins, Thera [Multivitamin 1 each PO DAILY 30 Days tab 07/03/22 07/25/22 Rx (formulary)] Paliperidone IM [Invega Sustenna] 156 mg IM DIRECTED #1 ml 07/03/22 07/25/22 Rx QUEtiapine [SEROquel] 50 mg PO DAILY PRN 15 Days tablet 07/03/22 07/25/22 Rx Allergies Allergy/AdvReac Type Severity Reaction Status Date / Time No Known Allergies Allergy Verified 07/25/22 13:12 Physical Exam Vitals: Vital Signs Temp Pulse Resp BP 07/25/22 07:01 97.5 F L 108 H 16 123/75 Cranial Nerve Examination - Cranial Nerves Cranial Nerve II- Optic: Intact Cranial Nerve III- Oculomotor: Intact Cranial Nerve IV- Trochlear: Intact Cranial Nerve V- Trigeminal: Intact Cranial Nerve - Abducens: Intact Cranial Nerve VII- Facial: Intact Cranial Nerve VIII- Auditory: Intact Cranial Nerve IX- Glossopharyngeal: Intact Cranial Nerve X- Vagus: Intact Cranial Nerve XI- Accessory: Intact Cranial Nerve XII- Hypoglossal: Intact Results CBC & Chem 7: 07/18/22 09:49 07/18/22 09:49 <Karen Min - Last Filed: 07/26/22 09:17> History of Present Illness I reviewed the documentation as provided by the MOLLY above, who is the original author of this note. I agree with the documented assessment and plan, with the following changes: none Physical Exam Osteopathic Statement: *. No significant issues noted on an osteopathic s tructural exam other than those noted in the History and Physical/Consult. Vitals: Vital Signs Temp Pulse Resp BP Pulse Ox 07/26/22 05:41 97.0 F L 107 H 16 110/59 99 Results CBC & Chem 7: 07/18/22 09:49 07/18/22 09:49
[2022-07-25] MEDS: DIVALPROEX ER 500 MG TAB.ER.24H PO SCH (21:21)
[2022-07-25] MEDS: BENZTROPINE MESYLATE 1 MG TAB PO SCH (21:21)
[2022-07-25] MEDS: LORazepam 1 MG TAB PO PRN (21:53)
[2022-07-26] MEDS: ACETAMINOPHEN TAB 325 MG TAB PO PRN ×2 (04:10→16:44)
[2022-07-26] MEDS: ARTIFICIAL TEARS-HYPROMELLOSE DROPS 15 ML BTL BOTH EYES PRN (09:20)
[2022-07-26] MEDS: BENZTROPINE MESYLATE 1 MG TAB PO SCH ×2 (09:22→20:14)
[2022-07-26] MEDS: risperiDONE 1 MG TAB PO SCH ×2 (09:22→20:14)
[2022-07-26] MEDS: NICOTINE 21MG/24HR PATCH TRANSDERM SCH (09:22)
[2022-07-26 10:59] LABS: ALT 145 U/L (4-49); AST 18 U/L (17-59); African American GFR (CKD) >90 (>60 ml/min/1.73 sqM); Albumin 3.7 g/dL (3.5-5.0); Alkaline Phosphatase 109 U/L (38-126); Anion Gap 7 mmol/L; Blood Urea Nitrogen 16 mg/dL (9-20); Calcium 8.5 mg/dL (8.4-10.2); Carbon Dioxide 24 mmol/L (22-30); Chloride 105 mmol/L (98-107); Glucose 97 mg/dL (74-99); Non-African American GFR(CKD) >90 (>60 ml/min/1.73 sqM); Potassium 4.6 mmol/L (3.5-5.1); Sodium 136 mmol/L (137-145); Total Bilirubin 0.7 mg/dL (0.2-1.3); Total Protein 6.6 g/dL (6.3-8.2)
[2022-07-26] MEDS: DIVALPROEX ER 500 MG TAB.ER.24H PO SCH (20:14)
--- NOTE | 2022-07-26 20:39 | P.PN ---
Subjective Progress Note Date: 07/26/22 Principal diagnosis: progress note he was seen today for follow up . He was followed by Dr. Pollard for his manic symptoms. Substance use was not kknown whcih may have contributed towards his manic despite his adherence to the Invega sustenna 234 mg im q4 week and risepridol od. He was seen laughing and dismissed he was responding to inernal stimuli. No grandiose ideas of reference .No pressures of speech was evident. He indciated he has not concerned over his admisison and was looking forward to finalizing his plan including D/c by next week Diagnosis: Bipolar disorder recnet amnci episode. rule out substance induced ayo complicating his primary diagnosis MSE: apporpirately groomed, intermittent laughing with no silliness or disjointed thought . range of affect : normal slgihtly euphoric. No hallucinations No delusions grandisity. No suicidal or homicidal ideations. Cog oriented with improved insight and judgment . Management Plan; 1. reinforce his adhernece ; he may benefit from adding mood stabilzer eg lamictal or Depakote oral dosage. 2. explore family support network Objective - Vital Signs Vital signs: Vital Signs Temp 97.0 F L 07/26/22 05:41 Pulse 107 H 07/26/22 05:41 Resp 16 07/26/22 05:41 BP 110/59 07/26/22 05:41 Pulse Ox 99 07/26/22 05:41 FiO2 - Labs CBC & Chem 7: 07/18/22 09:49 07/26/22 10:25 Labs: Abnormal Lab Results - Last 24 Hours (Table) 07/26/22 Range/Units 10:25 Sodium 136 L (137-145) mmol/L ALT 145 H (4-49) U/L
[2022-07-26] MEDS: LORazepam 1 MG TAB PO PRN (23:01)
[2022-07-27] MEDS: LORazepam 1 MG TAB PO PRN ×2 (03:13→21:22)
[2022-07-27] MEDS: ACETAMINOPHEN TAB 325 MG TAB PO PRN ×3 (03:13→18:33)
[2022-07-27] MEDS ORDERED: PALIPERIDONE IM 234 MG/1.5 ML SYG IM SCH (09:00)
[2022-07-27] MEDS: BENZTROPINE MESYLATE 1 MG TAB PO SCH ×2 (09:08→21:23)
[2022-07-27] MEDS: NICOTINE 21MG/24HR PATCH TRANSDERM SCH (09:10)
[2022-07-27] MEDS: LORazepam 2 MG/ML INJ IM PRN (12:38)
--- NOTE | 2022-07-27 20:39 | P.PN ---
Subjective Progress Note Date: 07/27/22 Principal diagnosis: progress note text He was reasssssed today regarding his mood symptoms. He was more stable with less agitation and pressured speech. His mood rated as euthymic congruent with his thought content. No craving for substances. He was goal direced. He was fully compliant with his Rx. talking freely about his family alignment. He was eager to be discharged. I redireced him to his attending psychiarist. A: overall imorvement no advese events to Rx. Diagosis. bipolar disorder mixed episode, in early remissoin . Plan; ready to be discharged by Thursday-Thursday, Adherence for relapse prevention. Substnace misuse most likely the factro for his acute admisison He would benefit form intensive outpatien follo wup with maintenance Rx monitoring and counselling for life skills. Objective - Vital Signs Vital signs: Vital Signs Temp 97.9 F 07/27/22 03:15 Pulse 112 H 07/27/22 03:15 Resp 16 07/27/22 03:15 BP 105/62 07/27/22 03:15 Pulse Ox 98 07/27/22 03:15 FiO2 - Labs CBC & Chem 7: 07/18/22 09:49 07/26/22 10:25
[2022-07-27] MEDS: DIVALPROEX ER 500 MG TAB.ER.24H PO SCH (21:23)
[2022-07-27] MEDS: ARTIFICIAL TEARS-HYPROMELLOSE DROPS 15 ML BTL BOTH EYES PRN (21:23)
[2022-07-28] MEDS ORDERED: BENZTROPINE MESYLATE 1 MG TAB PO PRN (10:08)
[2022-07-28] MEDS: BENZTROPINE MESYLATE 1 MG TAB PO SCH (10:45)
--- NOTE | 2022-07-28 11:51 | P.PN ---
Progress Note - Text Progress Note Date: 07/28/22 Interval History: Patient was seen attending group and was directable and agreeable to speak with keno writer / runner in the office. Currently, the patient is not reporting any suicidal ideation, intention, and/or plan. He vehemently denies any homicidal ideation today. He reports no auditory or visual hallucinations. He reports no paranoia or other delusions today. He has been adherent with his medications and reports no side effects. He received invega sustenna 234 mg IM yesterday. He wishes to take his benztropine as needed. He reports no issues regarding sleep or appetite. Mental Status Exam: General Appearance: Patient appears to be stated age is alert, directable, and cooperative. Behavior: Patient is calmly seated without any agitated behavior. Speech: Patient's speech is fluent and nonpressured. Mood/Affect: Mood is "feeling good doc." Affect is less somnolent. Suicidality/Homicidality: Patient denies any suicidal or homicidal ideation, intention, and/or plan. Perceptions: Patient denies any visual hallucinations and denies any auditory hallucinations Though content/process: Linear and logical in short conversation. Memory and concentration: AOX3, grossly intact for the purposes of this session Judgment and insight: mildly improving. Vital Signs Temp 99 F 07/28/22 06:23 Pulse 97 07/28/22 06:23 Resp 16 07/28/22 06:23 BP 112/65 07/28/22 06:23 Pulse Ox 96 07/28/22 06:23 FiO2 Assessment Bipolar 1 Disorder, current episode manic, severe with psychotic features Noncompliance with treatment Plan: -Patient continues to meet criteria for inpatient psychiatric admission for symptom stabilization and safety. The patient is court ordered for treatment. -Anticipate discharge on Thursday. -Medications: Invega Sustenna 234 mg IM administered on 07/27/2022. benztropine 1 mg by mouth twice a day PRN for EPS Continue Depakote 1500 mg by mouth at bedtime - Depakote level pending. CMP mild elevation in ALT (145). AST WNL. -When necessary Ativan and Thorazine for agitation/aggression. -SW on board for discharge planning. Encouraged the patient to participate in milieu.
[2022-07-28 11:56] VITALS: BMI 27.3
[2022-07-28] MEDS: ACETAMINOPHEN TAB 325 MG TAB PO PRN ×3 (12:47→20:54)
[2022-07-28] MEDS: DIVALPROEX ER 500 MG TAB.ER.24H PO SCH (20:53)
[2022-07-28] MEDS: LORazepam 1 MG TAB PO PRN (21:10)
[2022-07-28] MEDS: chlorproMAZINE 25 MG TAB PO PRN (21:10)
[2022-07-29 05:07] VITALS: BP 114/70; PULSE 107; RESP 17; TEMP 97.3
[2022-07-29] MEDS: ACETAMINOPHEN TAB 325 MG TAB PO PRN (05:20)
--- NOTE | 2022-07-29 13:40 | P.DS ---
Providers Date of admission: 07/17/22 22:32 Expected date of discharge: 07/29/22 Attending physician: Zak Pollard MD Consults: 07/17/22 21:35 Consult Physician Routine Consulting Provider: Xuan Physician Consult Reason/Comments: h and p Do you want consulting provider notified?: Yes, Notify in am Primary care physician: Stated None - Discharge Diagnosis(es) (1) Severe manic bipolar 1 disorder with psychotic behavior Current Visit: Yes Status: Acute Priority: High Hospital Course: Admission HPI: Initial psychiatric evaluation was completed by Dr Grant who wrote: "Patient is a 52 year old male well known to this unit with history of bipolar I disorder who presents with ayo. Patient presented to the hospital on 07/17/2022 brought in by [employer] police. Per petition, patient was "praying when he is in the roadway, brain to passing train. Entering people's homes without permission asked for relatives. Per clinical certificate completed by ER physician patient presented with acute psychosis and suicidal ideation with manic laughter, flight of ideas. Per [facility], patient has been exhibiting psychotic, manic and bizarre symptoms such as laughing hysterically when asked any questions. He called the provider a "ghost" and thought she was someone named "Dr. Dwyer "and insisted she took half of an egg carton filled with cereal that he poured homemade peanut butter milk on. The next day he insisted the provider was his cousin Manda and was talking about different "dimensions". He received a letter from [facility] in [place] regarding a no tresspass order and he plans to go there at noon to see someone named "Nuvia". He was advised against going there and reported he is not concerned if he were to go to halfway. Police had been called on him knocking on "Mikie and Ruchi's" door a few miles down the road. I evaluated patient on 07/18/2022 on the unit and on my assessment he appeared drowsy and had difficulty participating in assessment in meaningful dialogue. Earlier in the day he was observed to be swearing, agitated, and inappropriate with other people on the unit. He has required Haldol 5 mg po x 2, Ativan 2 mg po x 2, and Thorazine 75 mg IM x 1 for agitation so far today. He denies SI/HI/AVH. He received his last Invega Sustenna 156 mg IM on 06/30/22 at [facility]. This is his third admission to [facility] so far this year and he is currently on a deferral. PAST PSYCHIATRIC HISTORY: Unable to obtain history due to drowsiness. The following was taken from chart. Past diagnosis: Bipolar I disorder Past psychiatric medications: Depakote, Abilify Maintena, Cogentin, Thorazine, Prolixin, Invega Sustenna. History of court ordered treatment. Prrevious psychiatric hospitalizations: Multiple, [facility] in 2018, 2015 and 2013, twice in 2021. This is his third admission in the past three months. Psychiatric outpatient follow-up: [facility] History of suicide attempts in the past: Not known at this time due to sedation" Hospital course: Upon admission to the unit patient was initially presenting [facility], with poor hygiene and grooming, and episodes of agitation and grandiosity. The patient was under deferral status however due to his nonadherence with treatment and lack of cooperation, a demand for hearing was filed with the court. The patient was started on Risperdal 1 mg by mouth twice a day for mood stabilization and psychosis. The patient had intermittent episodes of inappropriate behavior with staff and peers. At times he was agitated and required administration of IM medications in order to calm him down. Over the course the hospitalization, the patient displayed gradual improvement as he was adherent with his medications. His Risperdal was gradually titrated and the patient was agreeable to starting Depakote. The patient also waved and stipulated court. The patient was eventually transition to Invega Sustenna 234 mg IM which was administered on 07/27/2022. The patient's Depakote was titrated to a final dose of 1500 mg at bedtime. As his medications were titrated, the patient had less episodes of agitation and required less administration of IM medications. On the day of discharge, the p atient is not reporting any suicidal or homicidal ideation, intention, and/or plan. He is not reporting any auditory or visual hallucinations. He denies any paranoia or other delusions. He reports no access to firearms or other weapons. The patient did express during this hospitalization when he was manic/psychotic homicidal thoughts and threats towards a neighbor of his. This was discussed w ith the patient's family and treatment team as part of the duty to warn. The patient is vehemently denying any desire to hurt anyone on the day of discharge. He remains future and goal oriented. He has been sleeping well and has not had any episodes of agitation for the past 48-72 hours. The patient is under court order for mental health treatment now and was encouraged to follow-up with his appointments for mental health and for primary care. He did have a slight elevation in his liver enzymes and was encouraged to follow-up with his primary care physician to monitor this. On the day of discharge, the patient is not reporting any abdominal pain, chest pain, shortness of breath, or any other medical issues or concerns. As the patient only met criteria for continued inpatient psychiatric admission, he was subsequently discharged. Mental status exam: General Appearance: Patient appears to be stated age is alert, pleasant, and cooperative. Patient is in no acute distress and has fair hygiene and grooming Behavior: Patient is calmly seated without any agitated behavior. Speech: Patient's speech is fluent and nonpressured. Mood/Affect: Patient reports their mood is "much better", affect is congruent and euthymic. Suicidality/Homicidality: Patient denies having any suicidal or homicidal ideation intent or plan. Perceptions: Patient denies any auditory or visual hallucinations. Though content/process: There is no evidence of any delusional thought content and thought process is linear and goal-directed. Memory and concentration: AOX3, grossly intact for the purposes of this session. Can spell "WORLD" backwards correctly. Judgment and insight: Improved with guarded prognosis Impression: Bipolar 1 Disorder, current episode manic, severe with psychotic features Plan: -Continue with discharge today as patient has improved and stabilized psychiatrically and is not currently an imminent threat to himself and/or others. Patient will remain at chronically elevated risk due to severity of his mental illness and his history of nonadherence with treatment. -Continue medications: Depakote ER 1500 mg at bedtime for mood stabilization Cogentin 1 mg BID PRN for EPS side effects Invega sustenna 234 mg IM was administered on 07/27/2022. Next dose due on 08/24/2022. -Patient was counseled on the need for medication compliance and appropriate follow-up at mental health and also primary care for medical issues. Patient verbalized understanding and agreed. -Social work to arrange for and conduct family meeting to ensure safety upon discharge and answer any questions/concerns. Social work also to arrange for patients follow up appointments with [facility] for psychiatric care along with follow up with primary care provider. -Patient counseled on abstaining from recreational drugs and marijuana and alcohol. Was informed/educated on the adverse effects on their physical and mental health. Patient verbally agreed and understood. -Patient was instructed to return to the hospital or seek immediate medical care if their psychiatric or medical symptoms do worsen or reoccur. -Psychoeducation and supportive therapy provided to patient. Risks and benefits of pharmacological treatment versus the risks and benefits of nontreatment weight and discussed. Informed consent discussion held. Common side effects of psychotropics discussed such as, but not limited to headache, GI disturbance, sexual dysfunction, movement disorders, sedation, and orthostatic hypotension. Life threatening and blackbox warnings of prescribed medications also discussed. Potential risks of operating a vehicle or heavy machinery discussed with patient at length. Advised on importance of compliance and a reliable and responsible manner. Patient advised to review FDA consumer labeling of all medications prior to taking. Patient verbalized understanding of potential risks, and agrees with current treatment plan. Patient advised to medically contact physician/emergency personnel if any acute changes in condition occur. Vital Signs Temp 97.3 F L 07/29/22 02:25 Pulse 107 H 07/29/22 02:25 Resp 17 07/29/22 02:25 BP 114/70 07/29/22 02:25 Pulse Ox 96 07/29/22 02:25 FiO2 Intake & Output 07/28/22 07/29/22 07/29/22 18:59 06:59 18:59 Weight 84.1 kg Laboratory Results WBC 6.4 k/uL (3.8-10.6) 07/18/22 09:49 RBC 5.17 m/uL (4.30-5.90) 07/18/22 09:49 Hgb 15.3 gm/dL (13.0-17.5) 07/18/22 09:49 Hct 46.2 % (39.0-53.0) 07/18/22 09:49 MCV 89.5 fL (80.0-100.0) 07/18/22 09:49 MCH 29.6 pg (25.0-35.0) 07/18/22 09:49 MCHC 33.1 g/dL (31.0-37.0) 07/18/22 09:49 RDW 11.8 % (11.5-15.5) 07/18/22 09:49 Plt Count 266 k/uL (150-450) 07/18/22 09:49 MPV 7.1 07/18/22 09:49 Neutrophils % 72 % 07/18/22 09:49 Lymphocytes % 18 % 07/18/22 09:49 Monocytes % 7 % 07/18/22 09:49 Eosinophils % 1 % 07/18/22 09:49 Basophils % 0 % 07/18/22 09:49 Neutrophils # 4.6 k/uL (1.3-7.7) 07/18/22 09:49 Lymphocytes # 1.2 k/uL (1.0-4.8) 07/18/22 09:49 Monocytes # 0.5 k/uL (0-1.0) 07/18/22 09:49 Eosinophils # 0.1 k/uL (0-0.7) 07/18/22 09:49 Basophils # 0.0 k/uL (0-0.2) 07/18/22 09:49 Sodium 136 mmol/L (137-145) L 07/26/22 10:25 Potassium 4.6 mmol/L (3.5-5.1) 07/26/22 10:25 Chloride 105 mmol/L (98-107) 07/26/22 10:25 Carbon Dioxide 24 mmol/L (22-30) 07/26/22 10:25 Anion Gap 7 mmol/L 07/26/22 10:25 BUN 16 mg/dL (9-20) 07/26/22 10:25 Creatinine 0.77 mg/dL (0.66-1.25) 07/26/22 10:25 Est GFR (CKD-EPI)AfAm >90 (>60 ml/min/1.73 sqM) 07/26/22 10:25 Est GFR (CKD-EPI)NonAf >90 (>60 ml/min/1.73 sqM) 07/26/22 10:25 Glucose 97 mg/dL (74-99) 07/26/22 10:[address] Glu mg/dL 118 07/18/22 09:49 Hemoglobin A1c 5.8 % (0.0-6.0) 07/18/22 09:49 Calcium 8.5 mg/dL (8.4-10.2) 07/26/22 10:25 Total Bilirubin 0.7 mg/dL (0.2-1.3) 07/26/22 10:25 AST 18 U/L (17-59) 07/26/22 10:25 ALT 145 U/L (4-49) H 07/26/22 10:25 Alkaline Phosphatase 109 U/L (38-126) 07/26/22 10:25 Total Protein 6.6 g/dL (6.3-8.2) 07/26/22 10:25 Albumin 3.7 g/dL (3.5-5.0) 07/26/22 10:25 Triglycerides 101.00 mg/dL (0.00-149.00) 07/18/22 09:49 Cholesterol 185.00 mg/dL (0.00-200.00) 07/18/22 09:49 LDL Cholesterol, Calc 117.7 mg/dL (0.0-131.0) 07/18/22 09:49 VLDL Cholesterol, Calc 20.20 mg/dL (5.00-40.00) 07/18/22 09:49 HDL Cholesterol 47.10 mg/dL (40.00-60.00) 07/18/22 09:49 Cholesterol/HDL Ratio 3.93 Ratio 07/18/22 09:49 TSH 1.220 mIU/L (0.465-4.680) 07/18/22 09:49 Urine Opiates Screen Not Detected (NotDetected) 07/17/22 17:13 Ur Oxycodone Screen Not Detected (NotDetected) 07/17/22 17:13 Urine Methadone Screen Not Detected (NotDetected) 07/17/22 17:13 Ur Propoxyphene Screen Not Detected (NotDetected) 07/17/22 17:13 Ur Barbiturates Screen Not Detected (NotDetected) 07/17/22 17:13 U Tricyclic Antidepress Not Detected (NotDetected) 07/17/22 17:13 Ur Phencyclidine Scrn Not Detected (NotDetected) 07/17/22 17:13 Ur Amphetamines Screen Not Detected (NotDetected) 07/17/22 17:13 U Methamphetamines Scrn Not Detected (NotDetected) 07/17/22 17:13 U Benzodiazepines Scrn Not Detected (NotDetected) 07/17/22 17:13 Urine Cocaine Screen Not Detected (NotDetected) 07/17/22 17:13 U Marijuana (THC) Screen Not Detected (NotDetected) 07/17/22 17:13 Coronavirus (PCR) Not Detected (Not Detectd) 07/17/22 21:33 Allergies Allergy/AdvReac Type Severity Reaction Status Date / Time No Known Allergies Allergy Verified 07/25/22 13:12 Patient Condition at Discharge: Stable Plan - Discharge Summary New Discharge Prescriptions: New Divalproex ER [Depakote ER] 1,500 mg PO HS 30 Days #30 tab Benztropine Mesylate [Cogentin] 1 mg PO BID PRN 30 Days #60 tab PRN Reason: EPS side effects Paliperidone IM [Invega Sustenna] 234 mg IM Q28D #1 ml Continue flaxseed oiL [[place]-3 Flaxseed Oil] 1,000 mg PO DAILY Cyanocobalamin [Vitamin B-12] 1,000 mcg PO DAILY 30 Days tab Ascorbic Acid [Vitamin C] 1,000 mg PO DAILY Multivitamins, Thera [Multivitamin (formulary)] 1 each PO DAILY 30 Days tab Discontinued QUEtiapine [SEROquel] 50 mg PO DAILY PRN 15 Days tablet PRN Reason: For insomnia Benztropine Mesylate 0.5 mg PO BID 1 Days #15 tab Paliperidone IM [Invega Sustenna] 156 mg IM DIRECTED #1 ml Discharge Medication List Ascorbic Acid [Vitamin C] 1,000 mg PO DAILY 06/30/22 [History] flaxseed oiL [[place]-3 Flaxseed Oil] 1,000 mg PO DAILY 06/30/22 [History] Cyanocobalamin [Vitamin B-12] 1,000 mcg PO DAILY 30 Days tab 07/03/22 [Rx] Multivitamins, Thera [Multivitamin (formulary)] 1 each PO DAILY 30 Days tab 07/03/22 [Rx] Benztropine Mesylate [Cogentin] 1 mg PO BID PRN 30 Days #60 tab 07/29/22 [Rx] Divalproex ER [Depakote ER] 1,500 mg PO HS 30 Days #30 tab 07/29/22 [Rx] Paliperidone IM [Invega Sustenna] 234 mg IM Q28D #1 ml 07/29/22 [Rx] Follow up Appointment(s)/Referral(s): [facility] [Outside] - 08/07/22 11:00 am (08/07/2022 11:00AM - 12:00PM MAYA CHANG) [facility] [NON-STAFF] - 1 Week Activity/Diet/Wound Care/Special Instructions: Avoid the use of street drugs and alcohol. Take all prescriptions as prescribed. When you are in need of refills on your medications, please contact your medical provider and/or outpatient psychiatrist to have this done. Please go to scheduled outpatient appointment for aftercare treatment. If symptoms return or become worse, call the crisis line at and/or go to the nearest emergency room for evaluation Discharge Disposition: HOME SELF-CARE
== END 2022-07-29 13:45 | disposition home or self-care (01) | DRG 885 ==
LOC: EC 15:43 → 3MHU 22:32
PROVIDERS: ADMIT Psychiatry & Neurology Psychiatry; ATTEND Psychiatry & Neurology Psychiatry
DX: F31.2 Bipolar disorder, current episode manic severe with psychotic features (principal); R45.851 Suicidal ideations; G47.00 Insomnia, unspecified; R45.850 Homicidal ideations; Z79.899 Other long term (current) drug therapy; Z81.8 Family history of other mental and behavioral disorders; Z91.199 Patient's noncompliance with other medical treatment and regimen due to unspecified reason; R45.1 Restlessness and agitation; Z20.822 Contact with and (suspected) exposure to COVID-19
CPT/HCPCS: 80053; 80061; 80165; 80306; 82075; 83036; 84443; 85025; 87635